=== PATIENT | female | born 1930 | race Caucasian/White ===

== ENCOUNTER 2016-12-11 11:16 | Inpatient (IN) | payer MEDICARE ==
[~2016-12-11] VITALS: Ht 170.2 cm; Wt 65.0 kg
[2016-12-12] MEDS ORDERED: CALC500T35 PO (09:49)
[2016-12-12] MEDS ORDERED: VITA1000 PO (09:49)
[2016-12-12] MEDS ORDERED: GLUC1TAB16 PO (09:49)
[2016-12-12] MEDS ORDERED: HYDR200T3 PO (09:49)
[2016-12-12] MEDS ORDERED: PRIL20TA2 PO (09:49)
[2016-12-12] MEDS ORDERED: ASPI-147 PO (09:49)
[2016-12-12] MEDS ORDERED: COLA100C PO (09:49)
[2016-12-12] MEDS ORDERED: PILO7.5T3 PO (09:49)
[2016-12-12] MEDS ORDERED: WHEA1POW9 PO (09:49)
[2016-12-12] MEDS ORDERED: MULT1TAB PO (09:49)
[2016-12-12] MEDS ORDERED: VITA500S3 SL (09:49)
[2016-12-12] MEDS ORDERED: PILO5TAB3 PO (09:49)
[2016-12-12] MEDS ORDERED: PYRI100T PO (09:49)
[2016-12-12] MEDS ORDERED: CRAN1TAB5 PO (09:49)
[2016-12-12] MEDS ORDERED: MIRA3350 PO (09:49)
[2016-12-12] MEDS ORDERED: ROSU5 PO (09:49)
[2016-12-12] MEDS ORDERED: ACTO150T PO (09:49)
[2016-12-12] MEDS ORDERED: BIOT2500 PO (09:49)
[2016-12-12] MEDS ORDERED: FISH1200 PO (09:49)
[2016-12-12] MEDS ORDERED: VALS320T4 PO (11:25)
[2016-12-16] MEDS ORDERED: NORMOSOL R INJ 1,000 ML IV ONE (12:00)
[2016-12-16] MEDS ORDERED: PROPOFOL 200 MG/20 ML AMP IV ONE (12:00)
[2016-12-16] MEDS ORDERED: ONDANSETRON HCL 4 MG/2 ML VIAL IV PUSH ONE (12:00)
[2016-12-16] MEDS ORDERED: PHENYLEPH/NS 1000 MCG/10 ML SYR IV ONE (12:00)
[2016-12-16] MEDS ORDERED: ePHEDrine/NS 25 MG/5 ML SYR IV ONE (12:00)
[2016-12-16] MEDS ORDERED: LACTATED RINGER'S 1000 ML INJ 1,000 ML IV ONE (12:00)
[2016-12-16] MEDS ORDERED: NEOSTIGMINE 3 MG/3 ML SYR IV ONE (12:00)
[2016-12-16] MEDS ORDERED: POVIDONE IODINE 5% (ANTISEPSIS KIT) 4 APPLICATIONS EACH NARE PRN (14:00)
[2016-12-16] MEDS ORDERED: ceFAZolin 1,000 MG/NS 100 ML IV SCH ×2 (14:00)
[2016-12-16] MEDS ORDERED: SODIUM CHLORID 0.9% 500 ML IV PRN (14:00)
[2016-12-16] MEDS ORDERED: METOPROLOL TARTRATE 25 MG TAB PO PRN (14:00)
[2016-12-16] MEDS ORDERED: INSULIN HUMAN REGULAR 1,000 UNITS/10 ML VIAL SQ PRN (14:00)
[2016-12-16] MEDS ORDERED: CHLORHEXIDINE GLUCONATE 2 % 1 PACK (2 CLOTHS) TOPICAL PRN (14:00)
[2016-12-16] MEDS ORDERED: METRONIDAZOLE 500 MG/100 ML ISONTONIC SOLN IV SCH (14:00)
[2016-12-16] MEDS ORDERED: LACTATED RINGER'S 1000 ML IV PRN (14:00)
[2016-12-16] MEDS ORDERED: ALVIMOPAN 12 MG CAPSULE - On Call PO SCH (14:00)
[2016-12-16] MEDS ORDERED: DEXT 5%-NACL 0.9% 1000 ML INJ 1,000 ML IV SCH (14:00)
--- NOTE | 2016-12-16 14:23 | PD.HP.UP ---
H&P Update Note The Pre-Admit History and Physical Examination regarding the above named patient was reviewed (including, but not limited to, vital signs, heart, lungs, co-morbid conditions), and upon re-examination it is noted that: the patient's condition has not significantly changed since the last examination. Justin Mi MD Dec 16, 2016 14:23
[2016-12-16 14:25] VITALS: BP 162/82; PULSE 95; RESP 16; TEMP 98.5; O2SAT 100
[2016-12-16] MEDS ORDERED: BUPIVACAINE HCL PF 0.5% 30 ML VIAL ONE (14:44)
[2016-12-16] MEDS ORDERED: SUGAMMADEX SODIUM 200 MG/2 ML VIAL IV PUSH ONE ×2 (15:40)
[2016-12-16] MEDS ORDERED: diphenhydrAMINE HCL 50 MG/ML VIAL ONE (15:41)
[2016-12-16] MEDS ORDERED: HYDROmorphone HCL PF 2 MG/ML VIAL ONE (15:41)
[2016-12-16] MEDS ORDERED: DO NOT ADM ANY ANTICOAGULANT DRUGS PRN (18:29)
[2016-12-16] MEDS ORDERED: KETOROLAC TROMETHAMINE 30 MG/ML (IVP) VIAL IVP PRN (18:30)
[2016-12-16] MEDS ORDERED: POTASSIUM CHLOR 40 MEQ PREMIX 100 ML IV PRN (18:30)
[2016-12-16] MEDS ORDERED: MORPHINE SULFATE 30 MG/30 ML PCA IV SCH (18:30)
[2016-12-16] MEDS ORDERED: ENALAPRILAT 2.5 MG/2 ML VIAL IV PRN (18:30)
[2016-12-16] MEDS ORDERED: ENALAPRILAT 1.25 MG/ML VIAL IV PRN (18:30)
[2016-12-16] MEDS ORDERED: POTASSIUM CHLOR 20 MEQ PREMIX 100 ML IV PRN (18:30)
[2016-12-16] MEDS ORDERED: ACETAMINOPHEN/HYDROcodone 325 MG/5 MG TAB PO PRN ×2 (18:30)
[2016-12-16] MEDS ORDERED: ACETAMINOPHEN 325 MG TAB PO PRN (18:30)
[2016-12-16] MEDS ORDERED: NALOXONE HCL 0.4 MG/ML AMP IV PRN ×2 (18:30→19:30)
[2016-12-16] MEDS ORDERED: ONDANSETRON HCL 4 MG/2 ML VIAL IV PRN (18:30)
[2016-12-16] MEDS ORDERED: BENZOCAINE 6 MG/MENTHOL 10 MG LOZENGE BUCCAL PRN (18:30)
[2016-12-16] MEDS ORDERED: SODIUM CHLORIDE 0.9% FLUSH 5 ML FLUSH IVF PRN (18:30)
[2016-12-16] MEDS ORDERED: Post-op Orders (for Pharmacy) MISC XX ONE (18:30)
[2016-12-16] MEDS ORDERED: fentaNYL CITRATE 250 MCG/5 ML AMP ONE (18:34)
[2016-12-16] MEDS ORDERED: HYDROmorphone HCL PCA 6 MG/30 ML IV ONE (19:01)
[2016-12-16] MEDS: D5-NS + KCL 20 MEQ INJ 1,000 ML IV SCH (19:05)
[2016-12-16] MEDS ORDERED: HYDROmorphone HCL PCA 6 MG/30 ML IV SCH (19:30)
[2016-12-16] MEDS ORDERED: *HYDROmorphone PF 1 MG VIAL PERIprocedural Use ONLY ONE (19:50)
[2016-12-16 20:39] VITALS: BP 150/65; PULSE 90; RESP 14; O2SAT 100
[2016-12-16 21:00] VITALS: PULSE 85
[2016-12-16] MEDS: SODIUM CHLORIDE 0.9% FLUSH 5 ML FLUSH IVF SCH (21:00)
[2016-12-16 22:00] VITALS: BP 136/72; PULSE 93; PULSE 94; RESP 14; O2SAT 100
[2016-12-16] MEDS ORDERED: PCA - TOTAL MG MORPHINE DELIVERED PER SHIFT SCH (22:00)
[2016-12-16] MEDS: METOCLOPRAMIDE HCL 10 MG/2 ML VIAL IVS SCH (22:10)
[2016-12-16] MEDS: diphenhydrAMINE HCL 50 MG/ML VIAL IV PRN (22:11)
[2016-12-16 23:00] VITALS: BP 101/60; PULSE 87; PULSE 88; RESP 14; TEMP 98.2; O2SAT 100
[2016-12-17] VITALS (10 sets, daily range): BP systolic 101–156; BP diastolic 54–77; PULSE 84–113; RESP 17–22; TEMP 95.4–100; O2SAT 95–100
[2016-12-17] MEDS: metroNIDAZOLE 500 MG INJ 100 ML IV SCH ×3 (01:03→13:55)
[2016-12-17] MEDS: D5-NS + KCL 20 MEQ INJ 1,000 ML IV SCH ×4 (02:27→21:54)
[2016-12-17] MEDS: diphenhydrAMINE HCL 50 MG/ML VIAL IV PRN ×2 (04:42→13:55)
[2016-12-17] MEDS: PCA - TOTAL MG DILAUDID DELIVERED PER SHIFT SCH ×3 (06:00→21:50)
[2016-12-17 06:45] LABS: AUTOMATED NEUTROPHIL # 6.3 TH/MM3 (1.8-7.7); BASOPHIL % 0.2 % (0.0-2.0); EOSINOPHIL % 0.2 % (0.0-4.0); HEMATOCRIT 33.7 % (35.0-46.0); HEMO FLAGS DIFF FINAL; LYMPH % 9.3 % (9.0-44.0); LYMPHOCYTE # 0.7 TH/MM3 (1.0-4.8); MEAN CELL VOLUME 89.3 FL (80.0-100.0); MEAN CORPUSCULAR HEMOGLOBIN 30.2 PG (27.0-34.0); MEAN CORPUSCULAR HGB CONC 33.8 % (32.0-36.0); MONO % 7.1 % (0.0-8.0); NEUT % 83.2 % (16.0-70.0); PLATELET COUNT 259 TH/MM3 (150-450); RED BLOOD COUNT 3.77 MIL/MM3 (4.00-5.30); RED CELL DISTRIBUTION WIDTH 14.9 % (11.6-17.2); WHITE BLOOD COUNT 7.6 TH/MM3 (4.0-11.0)
[2016-12-17 07:02] LABS: BICARBONATE 22.8 MEQ/L (21.0-32.0); POTASSIUM 4.4 MEQ/L (3.5-5.1)
[2016-12-17] MEDS: PANTOPRAZOLE SODIUM 40 MG VIAL IVP SCH (09:00)
[2016-12-17] MEDS ORDERED: NON-FORMULARY DRUG (Valsartan-Hydrochlorothiazide 1 TAB) PO SCH (09:00)
[2016-12-17] MEDS: SODIUM CHLORIDE 0.9% FLUSH 5 ML FLUSH IVF SCH ×2 (09:00→21:00)
[2016-12-17] MEDS: METOCLOPRAMIDE HCL 10 MG/2 ML VIAL IVS SCH ×2 (09:24→21:48)
[2016-12-17] MEDS: PANTOPRAZOLE SOD 40 MG DELAYED RELEASE TAB PO SCH (09:25)
[2016-12-17] MEDS: HYDROCHLOROTHIAZIDE 12.5 MG CAP PO SCH (09:26)
[2016-12-17] MEDS: ALVIMOPAN 12 MG CAPSULE - Post-op dosing PO SCH ×2 (09:26→21:48)
[2016-12-17] MEDS: VALSARTAN 160 MG TAB PO SCH (09:26)
--- NOTE | 2016-12-17 18:51 | HHI.PR ---
Subjective Remarks C/R Surg POD # 1 afebrile, VSS UO [place] PO Objective - Vital Signs Date Time Temp Pulse Resp B/P Pulse Ox O2 Delivery O2 Flow Rate FiO2 12/17/16 16:00 97.3 95 17 107/62 12/17/16 10:38 95 12/17/16 08:06 21 12/17/16 04:01 Nasal Cannula 2.00 Result Diagram: 12/17/16 0612 12/17/16 0612 Objective Remarks PE alert Abd - soft, wound dry, min tympany A/P Assessment and Plan Imp: stable post-op OOB decr IVF start PO Justin Mi MD Dec 17, 2016 18:51
[2016-12-17] MEDS ORDERED: ALVIMOPAN 12 MG CAPSULE PO SCH (21:00)
[2016-12-18] VITALS: BP 128/59; PULSE 109; RESP 22; TEMP 100.1; O2SAT 95
[2016-12-18 04:00] VITALS: BP 133/61; PULSE 106; RESP 20; TEMP 99.1; O2SAT 95
[2016-12-18 04:52] LABS: AUTOMATED NEUTROPHIL # 5.3 TH/MM3 (1.8-7.7); BASOPHIL % 0.3 % (0.0-2.0); EOSINOPHIL # 0.6 TH/MM3 (0-0.4); EOSINOPHIL % 6.7 % (0.0-4.0); HEMATOCRIT 29.4 % (35.0-46.0); HEMO FLAGS DIFF FINAL; LYMPH % 20.8 % (9.0-44.0); LYMPHOCYTE # 1.8 TH/MM3 (1.0-4.8); MEAN CELL VOLUME 89.3 FL (80.0-100.0); MEAN CORPUSCULAR HEMOGLOBIN 31.1 PG (27.0-34.0); MEAN CORPUSCULAR HGB CONC 34.8 % (32.0-36.0); MONO % 9.1 % (0.0-8.0); NEUT % 63.1 % (16.0-70.0); PLATELET COUNT 246 TH/MM3 (150-450); RED BLOOD COUNT 3.29 MIL/MM3 (4.00-5.30); RED CELL DISTRIBUTION WIDTH 14.9 % (11.6-17.2); WHITE BLOOD COUNT 8.5 TH/MM3 (4.0-11.0)
[2016-12-18 05:16] LABS: BICARBONATE 24.1 MEQ/L (21.0-32.0); POTASSIUM 4.2 MEQ/L (3.5-5.1)
[2016-12-18] MEDS: PCA - TOTAL MG DILAUDID DELIVERED PER SHIFT SCH ×2 (06:00→14:00)
--- NOTE | 2016-12-18 06:38 | MP ---
cc: IZABELA JACOBS M.D. DATE OF SURGERY 12/16/2016 PREOPERATIVE DIAGNOSIS Recurrent full-thickness rectal prolapse. PROCEDURE Exploratory laparotomy with lysis of adhesions and rectopexy. POSTOPERATIVE DIAGNOSIS Recurrent full-thickness rectal prolapse. SURGEON Dr. Jacobs PROCEDURE The patient was placed in the supine position. After adequate general anesthesia, her abdomen was prepped with Betadine solution and draped in the usual sterile fashion. Initially, the abdomen was opened through the previous midline incision. After getting through the subcutaneous tissue, there appeared to be mesh along the midline at a previous hernia repair. The mesh was incised entering the peritoneum and opening the abdomen under direct vision. There were some adhesions to the parietal peritoneum and these were taken down with electrocautery. Exploration revealed a very redundant colon with a very mobile cecum and transverse colon. The rectosigmoid had been previously resected and there appeared to be a very deep cul-de-sac with thickening and some edema of the rectum consistent with a rectal prolapse. The small bowel was run from the ligament of Treitz down to the ileocecal valve and felt to be pretty unremarkable. The uterus and ovaries appeared to be surgically absent. First, the sigmoid colon was mobilized medially by dividing along the left white line of Toldt. The left ureter was identified and carefully preserved. The right retroperitoneal space was then opened and the bowel dissected off the presacral fascia mobilizing the bowel down toward the pelvic floor. After complete mobilization, there appeared to be enough mobilization to proceed with a rectopexy. Horizontal Prolene stitches were then placed on both sides of the rectum into the mesentery securing them firmly into the presacral fascia on both sides. After both sutures were placed in each side, they were tied sequentially firming up the rectopexy. Additionally, several sutures were placed in the cul-de-sac, trying to reinforce the rectopexy repair. After completion, the lumen size of the rectum appeared to be more than adequate. There appeared to be good fixation of the rectum to the presacral fascia. Hemostasis was achieved at all sites. The midline incision was then closed anatomically reapproximating the midline fascia and the mesh with a running #1 PDS suture. The subcutaneous tissues irrigated copiously and the skin closed with a running subcuticular Vicryl suture and a few skin janki for hemostasis. The wound area washed with normal saline and dried, sterile dressing of Telfa and gauze applied. The patient tolerated the procedure quite well and was brought to recovery room in stable condition. Sponge and needle counts were correct at the end of the procedure. MD MARIKA Hauser/ABENA /11:40 PM /6:28 AM
[2016-12-18 08:00] VITALS: BP 146/72; PULSE 109; RESP 18; TEMP 100.2; O2SAT 95
[2016-12-18] MEDS: PANTOPRAZOLE SOD 40 MG DELAYED RELEASE TAB PO SCH (08:28)
[2016-12-18] MEDS: VALSARTAN 160 MG TAB PO SCH (08:28)
[2016-12-18] MEDS: METOCLOPRAMIDE HCL 10 MG/2 ML VIAL IVS SCH (08:29)
[2016-12-18] MEDS: HYDROCHLOROTHIAZIDE 12.5 MG CAP PO SCH (08:29)
[2016-12-18] MEDS: PANTOPRAZOLE SODIUM 40 MG VIAL IVP SCH (08:29)
[2016-12-18] MEDS: ALVIMOPAN 12 MG CAPSULE - Post-op dosing PO SCH ×2 (08:29→20:11)
[2016-12-18] MEDS: SODIUM CHLORIDE 0.9% FLUSH 5 ML FLUSH IVF SCH ×2 (08:30→20:11)
[2016-12-18] MEDS: D5-NS + KCL 20 MEQ INJ 1,000 ML IV SCH (08:30)
[2016-12-18 12:00] VITALS: BP 172/87; PULSE 104; RESP 18; TEMP 99.3; O2SAT 96
[2016-12-18 16:00] VITALS: BP 146/69; PULSE 105; RESP 18; TEMP 99.9; O2SAT 97
--- NOTE | 2016-12-18 18:43 | HHI.PR ---
Subjective Remarks C/R Surg POD # 2 afebrile, VSS UO [place] PO +flatus Objective - Vital Signs Date Time Temp Pulse Resp B/P Pulse Ox O2 Delivery O2 Flow Rate FiO2 12/18/16 16:00 99.9 105 18 146/69 97 12/17/16 08:06 21 12/17/16 04:01 Nasal Cannula 2.00 Result Diagram: 12/18/1641912/18/16419 Objective Remarks PE alert Abd - soft, wound dry, min tympany A/P Assessment and Plan Imp: OOB decr IVF start PO, adv dc plans Justin Mi MD Dec 18, 2016 18:43
[2016-12-18] MEDS ORDERED: METOCLOPRAMIDE HCL 10 MG/2 ML VIAL IVS PRN (18:45)
[2016-12-18 20:00] VITALS: BP 177/79; PULSE 105; RESP 18; TEMP 98.6; O2SAT 94
[2016-12-19] VITALS: BP 141/64; PULSE 102; RESP 18; TEMP 97.4; O2SAT 95
--- NOTE | 2016-12-19 07:49 | HHI.FF ---
Face to Face Verification Diagnosis: (1) Rectal prolapse Physical Therapy Order: Evaluate and Treat, Improve ambulation, Strength and gait training Home Health Nursing Order: Medical education Signs/symptoms of disease process Wound care and dressing changes I have seen patient Marilee Gibson on 12/19/16. My clinical findings support the need for the requested home health care services because: Ltd mobility - disease progression Deconditioned w/ increased weakness Limited ability to care for self High risk of falls I certify that my clinical findings support that this patient is homebound because: Post-op weakness Impaired cognitive ability/safety Unsteady gait/balance Justin Mi MD Dec 19, 2016 07:48
[2016-12-19 08:00] VITALS: BP 159/85; PULSE 95; RESP 18; TEMP 99; O2SAT 96
[2016-12-19] MEDS: VALSARTAN 160 MG TAB PO SCH (08:48)
[2016-12-19] MEDS: PANTOPRAZOLE SODIUM 40 MG VIAL IVP SCH (08:49)
[2016-12-19] MEDS: ALVIMOPAN 12 MG CAPSULE - Post-op dosing PO SCH (08:49)
[2016-12-19] MEDS: HYDROCHLOROTHIAZIDE 12.5 MG CAP PO SCH (08:49)
[2016-12-19] MEDS: PANTOPRAZOLE SOD 40 MG DELAYED RELEASE TAB PO SCH (08:49)
[2016-12-19] MEDS: SODIUM CHLORIDE 0.9% FLUSH 5 ML FLUSH IVF SCH (08:50)
[2016-12-19] MEDS: D5-NS + KCL 20 MEQ INJ 1,000 ML IV SCH (11:52)
[2016-12-19 12:00] VITALS: BP 128/64; PULSE 92; RESP 18; TEMP 99.1; O2SAT 97
--- NOTE | 2016-12-19 14:37 | HHI.PR ---
Subjective Remarks C/R Surg POD # 3 afebrile, VSS UO [place] PO +flatus/BM Objective - Vital Signs Date Time Temp Pulse Resp B/P Pulse Ox O2 Delivery O2 Flow Rate FiO2 12/19/16 12:00 99.1 92 18 128/64 97 12/17/16 08:06 21 12/17/16 04:01 Nasal Cannula 2.00 Result Diagram: 12/18/1641912/18/16419 Objective Remarks PE alert Abd - soft, wound dry, min tympany, wound opened lower pole - serous fluid A/P Assessment and Plan Imp: OOB decr IVF start PO, adv dc plans - local care to wound, RTO 1 week Justin Mi MD Dec 19, 2016 14:37
== END 2016-12-19 16:20 | disposition home or self-care (01) | DRG 331 ==
LOC: HSDI 12-16 13:18 → HCIS 12-16 20:30 → N07B 12-17 10:19
PROVIDERS: ADMIT Colon & Rectal Surgery; ATTEND Colon & Rectal Surgery
PROC: 0DNW0ZZ Release Peritoneum, Open Approach (ICD-10-PCS; principal; 2016-12-17)
PROC: 0DQP0ZZ Repair Rectum, Open Approach (ICD-10-PCS; 2016-12-17)
DX: K62.3 Rectal prolapse (principal); K66.0 Peritoneal adhesions (postprocedural) (postinfection)
CPT/HCPCS: 76937; 80048; 85025; 86850; 86900; 86901; 94150; J0690; J1170; J1200; J1885; J2370; J2405; J2710; J2765; J3010; J3480; J7120

== ENCOUNTER → 2016-12-12 | Outpatient (CLI) | payer MEDICARE ==
[~2016-12-12] MED LIST: ACTO150T PO; ACTO35TA PO; ASPI-147 PO; ASPI81TA82 PO; AVASINJ INJ; BIOT2500 PO; CALC500T35 PO; CALC600T34 PO; COLA100C PO; CRAN1TAB5 PO; DOCU1CAP39 PO; ESTR42.5V PV; FIBECHW2 PO; FISH1000 PO; FISH1200 PO; FOLI400T30 PO; GLUC1TAB16 PO; GLUCTAB47 PO; HYDR200T3 PO; HYDR200T42 PO; LORA10TA PO; LOTE20TA PO; MELO15TA2 PO; MIRA3350 PO; MULT1TAB PO; OMPR20CCR PO; PILO5TAB PO; PILO5TAB3 PO; PILO7.5T3 PO; PRIL20TA2 PO; PYRI100T PO; ROSU5 PO; TAB-TAB PO; VALS320T4 PO; VITA1000 PO; VITA10002 PO; VITA400C28 PO; VITA400C70 PO; VITA500S3 SL; WHEA1POW9 PO
--- NOTE | 2016-12-12 09:15 | RADRPT ---
EXAM DATE/TIME: 12/12/2016 09:02 [facility] COMPARISON: No previous studies available for comparison. INDICATIONS : Evaluate for pneumonia, pneumothorax or communicable disease. Pre op for rectal prolapse. MEDICAL HISTORY : Cardiovascular disease. SURGICAL HISTORY : None. ENCOUNTER: Initial ACUITY: 1 day PAIN SCORE: 0/10 LOCATION: Bilateral chest FINDINGS: Lungs are hyperexpanded with mild interstitial prominence. Mild scarring in the left lung base. No si gnificant focal pleural-parenchymal opacities. Cardiomediastinal contours are within normal limits. L eft axillary surgical clips. Anterior fusion hardware in the lower cervical spine. Osseous structures are grossly intact. CONCLUSION: 1. Changes suggestive of obstructive pulmonary disease. 2. Otherwise, no acute cardiopulmonary disease. Felipe Kirk MD on December 12, 2016 at 9:11 Board Certified Radiologist. This report was verified electronically.
[2016-12-12 09:20] LABS: BLOOD, URINE NEG (NEG); GLUCOSE,URINE NEG (NEG); KETONE, URINE NEG (NEG); NITRITE,URINE NEG (NEG); URINE COLOR LIGHT-YELLOW (YELLW/STRAW)
[2016-12-12 09:25] LABS: COMMENT (UR) CULT NOT INDICATED; CULTURE IF INDICATED CULT NOT INDICATED
[2016-12-12 09:32] LABS: AUTOMATED NEUTROPHIL # 3.9 TH/MM3 (1.8-7.7); BASOPHIL # 0.1 TH/MM3 (0-0.2); BASOPHIL % 0.7 % (0.0-2.0); EOSINOPHIL # 0.4 TH/MM3 (0-0.4); EOSINOPHIL % 5.3 % (0.0-4.0); HEMATOCRIT 35.3 % (35.0-46.0); HEMO FLAGS DIFF FINAL; LYMPH % 31.6 % (9.0-44.0); LYMPHOCYTE # 2.3 TH/MM3 (1.0-4.8); MEAN CELL VOLUME 91.5 FL (80.0-100.0); MEAN CORPUSCULAR HEMOGLOBIN 29.9 PG (27.0-34.0); MEAN CORPUSCULAR HGB CONC 32.6 % (32.0-36.0); MONO % 10.3 % (0.0-8.0); NEUT % 52.1 % (16.0-70.0); PLATELET COUNT 263 TH/MM3 (150-450); RED BLOOD COUNT 3.85 MIL/MM3 (4.00-5.30); RED CELL DISTRIBUTION WIDTH 14.9 % (11.6-17.2); WHITE BLOOD COUNT 7.4 TH/MM3 (4.0-11.0)
[2016-12-12 09:41] LABS: APTT (PATIENT) 26.7 SEC (24.3-30.1); PROTHROMBIN TIME - PATIENT 10.7 SEC (9.8-11.6)
[2016-12-12 10:09] LABS: ANION GAP 7 MEQ/L (5-15); AST (GOT) 23 U/L (15-37); BICARBONATE 26.7 MEQ/L (21.0-32.0); BLOOD UREA NITROGEN 19 MG/DL (7-18); CHLORIDE 101 MEQ/L (98-107); GLOMERULAR FILTRATION RATE 82 ML/MIN (>89); GLUCOSE,FASTING 87 MG/DL (74-99); POTASSIUM 4.1 MEQ/L (3.5-5.1); SODIUM (NA) 135 MEQ/L (136-145)
[2016-12-12 10:15] LABS: ALKALINE PHOSPHATASE 113 U/L (45-117); ALT (GPT) 21 U/L (10-53); TOTAL BILIRUBIN ADULT 0.5 MG/DL (0.2-1.0)
--- NOTE | 2016-12-12 12:39 | EKG ---
Date Performed: 12/12/2016 Time Performed: 08:30:11 PTAGE: 86 years EKG: Sinus rhythm WITH FREQUENT VENTRICULAR PREMATURE COMPLEXES POSSIBLE LEFT ATRIAL ENLARGEMENT MARKED LEFT AXIS ROBBIE ATION MINIMAL ST DEPRESSION ABNORMAL ECG PREVIOUS TRACING : 07/19/2013 13.44 DOCTOR: Colin Haro Interpretating Date/Time 12/12/2016 12:37:15
== END ==
LOC: CPRE 07:58
PROVIDERS: ATTEND Colon & Rectal Surgery
DX: Z01.812 Encounter for preprocedural laboratory examination (principal); Z01.810 Encounter for preprocedural cardiovascular examination; Z01.811 Encounter for preprocedural respiratory examination; K62.3 Rectal prolapse; R94.31 Abnormal electrocardiogram [ECG] [EKG]; Z79.01 Long term (current) use of anticoagulants
CPT/HCPCS: 36415; 71020; 80053; 81001; 85025; 85610; 85730; 93005

== ENCOUNTER 2016-12-30 20:06 | Inpatient (IN) | payer MEDICARE ==
[~2016-12-30] VITALS: Ht 170.2 cm; Wt 68.6 kg
[~2016-12-30 20:06] MED LIST changes: -ACTO35TA PO; -ASPI81TA82 PO; -AVASINJ INJ; -CALC600T34 PO; -DOCU1CAP39 PO; -ESTR42.5V PV; -FIBECHW2 PO; -FISH1000 PO; -FISH1200 PO; -FOLI400T30 PO; -GLUCTAB47 PO; -HYDR200T42 PO; -LORA10TA PO; -LOTE20TA PO; -MELO15TA2 PO; -OMPR20CCR PO; -PILO5TAB PO; -PILO7.5T3 PO; -TAB-TAB PO; -VITA10002 PO; -VITA400C28 PO; -VITA400C70 PO
[2016-12-30 20:18] VITALS: BP 109/68; PULSE 101; RESP 18; TEMP 101.6; O2SAT 96
[2016-12-30 20:27] VITALS: RESP 18; O2SAT 95
--- NOTE | 2016-12-30 20:27 | PD ---
HPI Chief Complaint: Fever Time Seen by Provider: 20:22 Travel History International Travel<30 days: No Contact w/Intl Traveler<30days: No Traveled to known affect area: No History of Present Illness HPI The patient is an 86 year old female who presents to the [facility] emergency department with a history of reportedly being 2 weeks postop from a rectal prolapse repair done by Dr. Mi. The patient reports that she was admitted to the hospital for 4 days. She reports that on the third day of hospitalization the lower aspect of the wound appeared to not be healing well. A few janki were removed and the wound dehisced and was packed. She denies being started on any antibiotic. She reports that she's had the dressing changed and wound repacked twice a day. She has home health that comes out to do this once a day and her helps to do it the second time H day. She reports that today she began to experience increased fatigue and noted that she had a fever with a MAXIMUM TEMPERATURE at home of 103. She denies having any nausea or vomiting. She denies having any diarrhea except for one episode of loose stools earlier today after taking milk of magnesia. She reports that she does have a history of chronic constipation which is why she took the milk of magnesia earlier today. She reports having urinary frequency since the surgery. She does report that she had a catheter in place further surgery. The patient reports having a history of urge incontinence that has been ongoing for the last several months. She denies having any dysuria. The patient denies having any cough, head congestion or chest congestion. She denies having any chest pain, chest pressure, or shortness of breath. She denies having any abdominal pain. She reports that she last saw Dr. Mi for a follow-up appointment last week. She reports that she has [address] and has an appointment scheduled to remove these for tomorrow. Otherwise on review of systems, the patient denies any neck pain, or other neurologic symptoms. The patient's arrives at the patient's bedside and reports that the abdominal wound is basically unchanged recently. He denies any purulent drainage with dressing changes. He denies noticing any increased redness at the wound site. [facility] Past Medical History Narrative Medical The patient's past medical history is significant for Sjogren's, hypertension, history of left breast cancer status post mastectomy and left breast reconstruction, history of coronary artery disease and prior myocardial infarction, history of lupus, neck and back arthritis Cancer: Yes (MASECTOMY AND LEFT BREAST RECONSTRUCTION) Cardiovascular Problems: Yes (NH 1996) Diabetes: No Endocrine: No Glaucoma: No Genitourinary: No Hepatitis: No Hiatal Hernia: No Hypertension: Yes Immune Disorder: Yes (SOJOURN SYNDROME, LUPUS) Musculoskeletal: Yes (BACK AND NECK, ARTHRITIS) Neurologic: Yes (NEUROPATHY FEET, REYNAUDS) Psychiatric: No Reproductive: Yes (VAG. PROLAPSE) Respiratory: No Thyroid Disease: No Past Surgical History Narrative Surgical The patient's past surgical history is significant for cervical spine surgery, hysterectomy, left mastectomy with reconstruction, bilateral cataract surgery, prolapsed rectum repair in 2000 and most recently 2 weeks ago Abdominal Surgery: Yes (ABDOMINAL HERNIA REP.) AICD: No Body Medical Devices: CERVICAL HARDWARE Cardiac Surgery: No Ear Surgery: No Endocrine Surgery: No Eye Surgery: Yes (JOHN. CATARACT EXTRACT) Genitourinary Surgery: Yes (AP REPAIR WITH PROLAPSED RECTUM REPAIR 2000) Gynecologic Surgery: Yes (HYSTERECTOMY, LEFT MASTECTECTOMY) Joint Replacement: Yes (BILAT KNEES, RIGHT HIP) Oral Surgery: No Pacemaker: No Thoracic Surgery: No Social History Alcohol Use: Yes (OCC SCOTCH) Tobacco Use: No Substance Use: No Allergies-Medications (Allergen,Severity, Reaction): Coded Allergies: Cipro (Verified Allergy, Severe, BP DROPPED AND PASSED OUT , 12/30/16) Codeine (Verified Allergy, Severe, itch, 12/30/16) Morphine (Verified Allergy, Severe, ITCH, 12/30/16) Quinolones (Verified Allergy, Severe, b/p dropped and pt passed out, ) Penicillin (Verified Allergy, Intermediate, MOUTH BREAKS OUT, 12/30/16) Sulfa (Verified Allergy, Intermediate, MOUTH BREAKS OUT, 12/30/16) Uncoded Allergies: CAT GUT SUTURE (Allergy, Severe, NON-HEALING WOUND, 11/16/13) Reported Meds & Prescriptions Reported Meds & Active Scripts Active Reported Valsartan-Hydrochlorothiazide 320-12.5 Mg Tab 1 Tab PO DAILY Cranberry Tablet (Cranberry Conc/C/Bacill Coag) 1 Each Tablet 1 Tab PO DAILY Colace (Docusate Sodium) 100 Mg Capsule 100 Mg PO DAILY Miralax Powder (Polyethylene Glycol 3350 Powder) 17 Gm Powd 17 Gm PO DAILY Mix and dissolve one measuring cap-ful (17 grams) in water or juice. Benefiber (Wheat Dextrin) 144 Gm Powder 144 Gm PO DAILY Glucosamine Sulfate 1,000 Mg Tab 2,000 Mg PO DAILY Biotin 2,500 Mcg Cap 2,500 Mcg PO DAILY Vitamin D-1000 (Cholecalciferol) 1,000 Unit Tab 1,000 Units PO DAILY Vitamin B-12 (Cyanocobalamin) 500 Mcg Subl 500 Mcg SL DAILY Vitamin B-6 (Pyridoxine HCl) 100 Mg Tab 100 Mg PO DAILY Centrum Silver Adult 50+ (Multiple Vitamins W/ Minerals) 1 Tab Tab 1 Tab PO DAILY Calcium (Oyster Shell) 500 Mg Tab 500 Mg PO DAILY Hydroxychloroquine (Hydroxychloroquine Sulfate) 200 Mg Tab 200 Mg PO DAILY Takw with food Prilosec (Omeprazole Magnesium) 20 Mg Tab 20 Mg PO DAILY Pilocarpine 5 Mg Tab 5 Mg PO Q8HR Ecotrin Low Strength (Aspirin) 81 Mg Tabdr 81 Mg PO DAILY Crestor (Rosuvastatin Calcium) 5 Mg Tab 5 Mg PO DAILY Actonel (Risedronate) 150 Mg Tab 150 Mg PO Q30D Review of Systems Except as stated in HPI: all other systems reviewed are Neg General / Constitutional: Positive: Fever Eyes: No: Visual changes HENT: No: Headaches, Rhinorrhea, Congestion Cardiovascular: No: Chest Pain or Discomfort, Dyspnea on exertion Respiratory: No: Cough, Shortness of Breath Gastrointestinal: Positive: Constipation (chronic), No: Nausea, Vomiting, Diarrhea, Abdominal Pain, Hematemesis, Hematochezia, Changes in Bowel Habits, Indigestion, Loss of Appetite Genitourinary: No: Dysuria Musculoskeletal: No: Pain Skin: No Rash Neurologic: No: Weakness Psychiatric: No: Depression Endocrine: No: Polydipsia Hematologic/Lymphatic: No: Easy Bruising Physical Exam Narrative General: The patient is a well-developed well-nourished female in no acute distress. Head and Neck exam: Head is normocephalic atraumatic. Eyes: EOMI, pupils are equal round and reactive to light. Nose: Midline septum with pink mucous membranes Mouth: Dentition unremarkable. Moist mucus membranes. Posterior oropharynx is not erythematous. No tonsillar hypertrophy. Uvula midline. Airway patent. Neck: No palpable lymphadenopathy. No nuchal rigidity. No thyromegaly. Cardiovascular: Sinus tachycardia in the low 100 without murmurs, gallops, or rubs. No pulse deficit to the extremities and simultaneous auscultation and palpation of her radial artery. Lungs: Clear to auscultation bilaterally. No wheezes, rhonchi, or rales. Abdomen: Soft, without tenderness to palpation in all 4 quadrants of the abdomen. No guarding, rebound, or rigidity. Normal bowel sounds are audible. No tenderness on palpation of McBurney's point. Negative Sigala's sign. The patient has a central abdominal postoperative wound noted. The patient has [address] The patient has a rim of rear small surrounding rim of erythema, however she reports that this is unchanged. The lower aspect of the wound has dehisced and has packing in place that has a serosanguineous drainage noted. Extremities: No clubbing, cyanosis, or edema. 2+ pulses in all 4 extremities. No calf tenderness on palpation. Back: No costovertebral angle tenderness to palpation. Neurologic Exam: Grossly nonfocal. Skin Exam: No rash noted. Data Data Last Documented VS Vital Signs Date Time Temp Pulse Resp B/P Pulse Ox O2 Delivery O2 Flow Rate FiO2 12/30/16 22:00 93 18 118/58 12/30/16 21:00 96 12/30/16 20:27 Room Air 12/30/16 20:18 101.6 Orders Complete Blood Count With Diff (12/30/16 20:22) Comprehensive Metabolic Panel (12/30/16 20:22) Prothrombin Time / Inr (Pt) (12/30/16 20:22) Act Partial Throm Time (Ptt) (12/30/16 20:22) Blood Culture (12/30/16 20:22) C-Reactive Protein (Crp) (12/30/16 20:22) Urinalysis - C+S If Indicated (12/30/16 20:22) Cath For Specimen (12/30/16 20:22) Magnesium (Mg) (12/30/16 20:22) Chest, Single Ap (12/30/16 20:22) Iv Access Insert/Monitor (12/30/16 20:22) Ecg Monitoring (12/30/16 20:22) Oximetry (12/30/16 20:22) Lactic Acid Sepsis Protocol (12/30/16 20:22) Ct Abd/Pel W Iv Contrast(Rout) (12/30/16 21:25) Ceftriaxone Inj (Rocephin Inj) (12/30/16 21:30) Sodium Chlor 0.9% 1000 Ml Inj (Ns 1000 M (12/30/16 21:30) Acetaminophen (Tylenol) (12/30/16 21:30) Iohexol 350 Inj (Omnipaque 350 Inj) (12/30/16 22:01) Vancomycin Inj (Vancomycin Inj) (12/30/16 22:13) Admit Order (Ed Use Only) (12/30/16 22:41) Labs Laboratory Tests Test 12/30/16 12/30/16 12/30/16 20:25 20:30 21:30 White Blood Count 17.0 TH/MM3 Red Blood Count 3.89 MIL/MM3 Hemoglobin 11.5 GM/DL Hematocrit 34.6 % Mean Corpuscular Volume 88.9 FL Mean Corpuscular Hemoglobin 29.7 PG Mean Corpuscular Hemoglobin 33.4 % Concent Red Cell Distribution Width 14.5 % Platelet Count 459 TH/MM3 Mean Platelet Volume 9.9 FL Neutrophils (%) (Auto) 89.6 % Lymphocytes (%) (Auto) 6.1 % Monocytes (%) (Auto) 3.9 % Eosinophils (%) (Auto) 0.1 % Basophils (%) (Auto) 0.3 % Neutrophils # (Auto) 15.2 TH/MM3 Lymphocytes # (Auto) 1.0 TH/MM3 Monocytes # (Auto) 0.7 TH/MM3 Eosinophils # (Auto) 0.0 TH/MM3 Basophils # (Auto) 0.1 TH/MM3 CBC Comment DIFF FINAL Differential Comment Prothrombin Time 12.3 SEC Prothromb Time International 1.1 RATIO Ratio Activated Partial 28.9 SEC Thromboplast Time Sodium Level 130 MEQ/L Potassium Level 3.9 MEQ/L Chloride Level 96 MEQ/L Carbon Dioxide Level 25.1 MEQ/L Anion Gap 9 MEQ/L Blood Urea Nitrogen 21 MG/DL Creatinine 0.83 MG/DL Estimat Glomerular Filtration 65 ML/MIN Rate Random Glucose 149 MG/DL Calcium Level 8.4 MG/DL Magnesium Level 2.1 MG/DL Total Bilirubin 0.4 MG/DL Aspartate Amino Transf 23 U/L (AST/SGOT) Alanine Aminotransferase 20 U/L (ALT/SGPT) Alkaline Phosphatase 166 U/L C-Reactive Protein 9.80 MG/DL Total Protein 7.2 GM/DL Albumin 3.1 GM/DL Lactic Acid Level 2.0 mmol/L Urine Color YELLOW Urine Turbidity CLEAR Urine pH 6.0 Urine Specific [place] 1.022 Urine Protein 30 mg/dL Urine Glucose (UA) NEG mg/dL Urine Ketones NEG mg/dL Urine Occult Blood NEG Urine Nitrite NEG Urine Bilirubin NEG Urine Urobilinogen LESS THAN 2.0 MG/DL Urine Leukocyte Esterase NEG Urine RBC LESS THAN 1 /hpf Urine WBC 1 /hpf Urine Squamous Epithelial <1 /hpf Cells Urine Mucus FEW /lpf Microscopic Urinalysis Comment CULT NOT INDICATED MDM Medical Decision Making Medical Screen Exam Complete: Yes Emergency Medical Condition: Yes Medical Record Reviewed: Yes Interpretation(s) Last Impressions Abdomen/Pelvis CT 12/30/162124 Signed Impressions: Service Date/Time: Friday, December 30, 2016 21:58 - CONCLUSION: Recent midline laparotomy. Elongated debris collection within the anterior abdominal wall and potentially a developing fistula track within the anterior aspect of the underlying peritoneal space. I don't see a drainable abscess. No bowel obstruction. Marcus Montano MD ADDENDUM: Per the colorectal surgeon, the anterior abdominal wound has been recently open and packed, would explain the elongated debris/air collection within the anterior bowel wall. Marcus Montano MD Chest X-Ray 12/30/162021 Signed Impressions: Service Date/Time: Friday, December 30, 2016 20:22 - CONCLUSION: Trace consolidation and tiny pleural effusion at the left base. Marcus Montano MD Differential Diagnosis Pyelonephritis, versus postoperative pneumonia, versus postoperative wound infection, versus intra-abdominal abscess Narrative Course During the course of the patients emergency department visit, the patients history, examination, and differential diagnosis were reviewed with the patient. The patient had IV access obtained and blood work sent for analysis. The patient was placed on a playground monitor with oximetry and blood pressure monitoring. Dr. Mi called regarding his patient and agreed with the plan of care and initial workup. The patient was initially provided Tylenol 650 mg by mouth 1 for fever, normal saline 1 L IV fluid bolus, Rocephin 1 g IV for suspected urinary tract infection as a source of the patient's postop fever given the patient's urinary symptoms. The patients laboratory studies were reviewed and remarkable for a white count of 17, hemoglobin 11.5, platelets 459, neutrophils 89.6, lymphocytes 6.1, CMP is remarkable for sodium 1:30, chloride 96, BUN 21, glucose 149, calcium 8.4, alkaline phosphatase 166, C-reactive protein 9.8, lactic acid 2, PT 12.3, PTT 28.9, urinalysis shows 30 protein otherwise unremarkable. Radiology studies were reviewed and remarkable for a chest x-ray that shows trace consolidation and tiny pleural effusion at the left base, CT scan of the abdomen and pelvis shows a recent midline laparotomy, along gait and debris collection within the anterior abdominal wall and potentially a developing fistula track within the anterior aspect of the underlying peritoneal's. No drainable abscess is noted. The patient's case was again discussed with Dr. Mi. He did agree to admit the patient for continued evaluation and treatment. Blood cultures 2 are pending. The patients results were discussed with the patient, including the plan of care. I explained that further testing and/ or monitoring is indicated based on the patients history, examination, and/ or laboratory findings. Therefore, I recommended admission for additional evaluation. The patient expressed understanding and was agreeable with this plan. The patient was admitted to the hospital in stable condition and sent to a bed under the care of the colorectal surgeon. Sepsis Criteria SIRS Criteria (2 or more): Temp > 100.9 or < 96.8, Heart rate over 90, WBC > 26274, < 4000 or > 10% bands Sepsis Criteria (SIRS+source): Infect source susp/known Physician Communication Physician Communication I spoke to Dr. Mi at approximately 8:28 PM regarding this patient's case. We did discuss the fact that a workup was process. I will give him a call back on to have more information. Admitting Information Admitting Physician Requests: Admit Olivia Dye MD Dec 30, 2016 20:27
--- NOTE | 2016-12-30 20:56 | RADRPT ---
EXAM DATE/TIME: 12/30/2016 20:22 [facility] COMPARISON: CHEST PA & LAT, December 12, 2016, 9:02. INDICATIONS : Fever. MEDICAL HISTORY : Cardiovascular disease. SURGICAL HISTORY : None. ENCOUNTER: Initial ACUITY: 1 day PAIN SCORE: 0/10 LOCATION: Bilateral chest FINDINGS: Mild consolidation and a tiny effusion seen at the left lung base. Right lung is clear. No pneumothor ax. Heart size stable, upper limits of normal. CONCLUSION: Trace consolidation and tiny pleural effusion at the left base. Marcus Montano MD on December 30, 2016 at 20:54 Board Certified Radiologist. This report was verified electronically.
[2016-12-30 21:00] VITALS: BP 115/56; PULSE 96; RESP 18; O2SAT 96
[2016-12-30 21:09] LABS: AUTOMATED NEUTROPHIL # 15.2 TH/MM3 (1.8-7.7); BASOPHIL # 0.1 TH/MM3 (0-0.2); BASOPHIL % 0.3 % (0.0-2.0); EOSINOPHIL % 0.1 % (0.0-4.0); HEMATOCRIT 34.6 % (35.0-46.0); HEMO FLAGS DIFF FINAL; LYMPH % 6.1 % (9.0-44.0); MEAN CELL VOLUME 88.9 FL (80.0-100.0); MEAN CORPUSCULAR HEMOGLOBIN 29.7 PG (27.0-34.0); MEAN CORPUSCULAR HGB CONC 33.4 % (32.0-36.0); MONO % 3.9 % (0.0-8.0); NEUT % 89.6 % (16.0-70.0); PLATELET COUNT 459 TH/MM3 (150-450); RED BLOOD COUNT 3.89 MIL/MM3 (4.00-5.30); RED CELL DISTRIBUTION WIDTH 14.5 % (11.6-17.2)
[2016-12-30 21:21] LABS: APTT (PATIENT) 28.9 SEC (24.3-30.1); INTERNATIONAL NORMALIZED RATIO 1.1 RATIO; PROTHROMBIN TIME - PATIENT 12.3 SEC (9.8-11.6)
[2016-12-30 21:25] LABS: ALT (GPT) 20 U/L (10-53); ANION GAP 9 MEQ/L (5-15); AST (GOT) 23 U/L (15-37); BICARBONATE 25.1 MEQ/L (21.0-32.0); BLOOD UREA NITROGEN 21 MG/DL (7-18); CHLORIDE 96 MEQ/L (98-107); GLOMERULAR FILTRATION RATE 65 ML/MIN (>89); MAGNESIUM 2.1 MG/DL (1.5-2.5); POTASSIUM 3.9 MEQ/L (3.5-5.1); SODIUM (NA) 130 MEQ/L (136-145)
[2016-12-30 21:28] LABS: ALKALINE PHOSPHATASE 166 U/L (45-117); TOTAL BILIRUBIN ADULT 0.4 MG/DL (0.2-1.0)
[2016-12-30] MEDS ORDERED: SODIUM CHLOR 0.9% 1000 ML INJ 1,000 ML IV ONE (21:30)
[2016-12-30] MEDS ORDERED: cefTRIAXone INJ 1,000 MG in SODIUM CHLORIDE 0.9% INJ 100 ML IV ONE (21:30)
[2016-12-30] MEDS ORDERED: ACETAMINOPHEN 325 MG TAB PO ONE (21:30)
[2016-12-30 21:58] LABS: BLOOD, URINE NEG (NEG); COMMENT (UR) CULT NOT INDICATED; CULTURE IF INDICATED CULT NOT INDICATED; GLUCOSE,URINE NEG (NEG); KETONE, URINE NEG (NEG); MUCUS URINE FEW /lpf (OCC); NITRITE,URINE NEG (NEG); SQUAMOUS EPITHELIAL CELL URINE <1 /hpf (0-5); URINE COLOR YELLOW (YELLW/STRAW)
[2016-12-30 22:00] VITALS: BP 118/58; PULSE 93; RESP 18
[2016-12-30] MEDS ORDERED: IOHEXOL 350 MG/ML 10 ML VIAL (for RAD DIAG) IV ONE (22:01)
[2016-12-30] MEDS ORDERED: VANCOMYCIN INJ 1,000 MG in SODIUM CHLOR 0.9% 250 ML INJ 250 ML IV STA (22:13)
--- NOTE | 2016-12-30 22:25 | RADRPT ---
EXAM DATE/TIME: 12/30/2016 21:58 This report includes an Addendum and supersedes previous reports for this exam. [facility] COMPARISON: No previous studies available for comparison. INDICATIONS : General weakness and fever. Status post-op 2 weeks laparotomy and rectal prolapse repair. IV CONTRAST: 99 cc Omnipaque 350 (iohexol) IV ORAL CONTRAST: No oral contrast ingested. RADIATION DOSE: CTDIvol (mGy) MEDICAL HISTORY : None SURGICAL HISTORY : Right hip replacement. Prolapse rectum repair. ENCOUNTER: Initial ACUITY: 1 day PAIN SCALE: 2/10 LOCATION: Bilateral abdomen TECHNIQUE: Volumetric scanning of the abdomen and pelvis was performed. Using automated exposure control and ad justment of the mA and/or kV according to patient size, radiation dose was kept as low as reasonably achievable to obtain optimal diagnostic quality images. DICOM format image data is available electro nically for review and comparison. FINDINGS: There is evidence of a recent midline laparotomy. Skin janki remain in place. There is an elongated air/debris collection with trace fluid within the anterior abdominal wall and measuring approximatel y 18 mm across and roughly 10 cm in length in between the umbilicus and pubic symphysis. I believe th ere is some mesh at the level of the umbilicus. Inferior to this a is an approximately 15 mm focus of enhancement suggesting a tiny fluid collection and/or possible fistula tract. Deep margin of this is inseparable from fluid filled loops of colon, for example series 2 image 58. An anastomosis is seen in the region of the rectosigmoid junction. The colon is fluid filled but nond istended. I also don't see any significant wall thickening. No evidence of obstruction. 24 mm stone seen in the gallbladder. There is atherosclerosis of the abdominal aorta. 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 No acute abnormality seen the liver, spl een, pancreas, adrenal glands or kidneys. No acute bony abnormality demonstrated. Trace atelectasis seen of the visualized lung bases. Left josue ast implant noted. Apparent previous right mastectomy. CONCLUSION: Recent midline laparotomy. Elongated debris collection within the anterior abdominal wall and potenti ally a developing fistula track within the anterior aspect of the underlying peritoneal space. I don' t see a drainable abscess. No bowel obstruction. Marcus Montano MD on December 30, 2016 at 22:14 Board Certified Radiologist. This report was verified electronically. ADDENDUM: Per the colorectal surgeon, the anterior abdominal wound has been recently open and packed, would exp leisa the elongated debris/air collection within the anterior bowel wall. Marcus Montano MD on December 30, 2016 at 22:36 Board Certified Radiologist. This report was verified electronically.
[2016-12-30] MEDS ORDERED: Vancomycin Consult Pharmacy 1 EA OTHER SCH (22:45)
[2016-12-30] MEDS ORDERED: VANCOMYCIN INJ 1,000 MG in SODIUM CHLOR 0.9% 250 ML INJ 250 ML IV SCH (22:45)
[2016-12-30] MEDS ORDERED: VANCOMYCIN INJ 1,750 MG in SODIUM CHLORID 0.9% 500 ML INJ 500 ML IV ONE (23:00)
[2016-12-30] MEDS: SODIUM CHLOR 0.9% 1000 ML INJ 1,000 ML IV SCH (23:50)
[2016-12-30 23:51] VITALS: BP 121/54; PULSE 88; RESP 17; TEMP 98.7; O2SAT 97
[2016-12-31 01:30] VITALS: BP 138/66; PULSE 92; RESP 18; TEMP 97; O2SAT 97
[2016-12-31 04:00] VITALS: BP 140/70; PULSE 93; RESP 18; TEMP 97.4; O2SAT 98
[2016-12-31 08:00] VITALS: BP 160/74; PULSE 107; RESP 18; TEMP 100.9; O2SAT 99
[2016-12-31] MEDS: ACETAMINOPHEN 325 MG TAB PO PRN ×2 (08:37→19:37)
[2016-12-31] MEDS: PANTOPRAZOLE SOD 40 MG DELAYED RELEASE TAB PO SCH (08:37)
[2016-12-31] MEDS ORDERED: ONDANSETRON HCL 4 MG/2 ML VIAL IV PUSH PRN (09:45)
[2016-12-31] MEDS: cefTRIAXone INJ 1,000 MG in SODIUM CHLORIDE 0.9% INJ 100 ML IV SCH (11:35)
[2016-12-31] MEDS: SODIUM CHLOR 0.9% 1000 ML INJ 1,000 ML IV SCH (11:35)
[2016-12-31 12:00] VITALS: BP 133/62; PULSE 99; RESP 18; TEMP 99.9; O2SAT 99
[2016-12-31 16:00] VITALS: BP 144/63; PULSE 100; RESP 18; TEMP 100.8; O2SAT 96
[2016-12-31 16:41] LABS: AUTOMATED NEUTROPHIL # 16.4 TH/MM3 (1.8-7.7); BASOPHIL % 0.1 % (0.0-2.0); EOSINOPHIL # 0.1 TH/MM3 (0-0.4); EOSINOPHIL % 0.4 % (0.0-4.0); HEMATOCRIT 28.9 % (35.0-46.0); HEMO FLAGS DIFF FINAL; LYMPH % 6.4 % (9.0-44.0); LYMPHOCYTE # 1.1 TH/MM3 (1.0-4.8); MEAN CELL VOLUME 90.1 FL (80.0-100.0); MEAN CORPUSCULAR HEMOGLOBIN 29.4 PG (27.0-34.0); MEAN CORPUSCULAR HGB CONC 32.6 % (32.0-36.0); NEUT % 91.1 % (16.0-70.0); PLATELET COUNT 383 TH/MM3 (150-450); RED CELL DISTRIBUTION WIDTH 14.6 % (11.6-17.2)
[2016-12-31 20:00] VITALS: BP 110/58; PULSE 102; RESP 18; TEMP 98.8; O2SAT 96
[2016-12-31] MEDS: VANCOMYCIN INJ 1,250 MG in SODIUM CHLOR 0.9% 250 ML INJ 250 ML IV SCH (22:53)
[2016-12-31] MEDS: PILOCARPINE HCL 5 MG TAB PO SCH (22:53)
[2017-01-01] VITALS: BP 159/72; PULSE 96; RESP 19; TEMP 96.5; O2SAT 99
[2017-01-01] MEDS: SODIUM CHLOR 0.9% 1000 ML INJ 1,000 ML IV SCH (01:40)
[2017-01-01 04:00] VITALS: BP 129/67; PULSE 103; RESP 19; TEMP 96.7; O2SAT 97
[2017-01-01] MEDS: PILOCARPINE HCL 5 MG TAB PO SCH ×3 (06:40→22:23)
[2017-01-01 06:53] LABS: ALT (GPT) 16 U/L (10-53); ANION GAP 8 MEQ/L (5-15); AST (GOT) 14 U/L (15-37); BICARBONATE 22.3 MEQ/L (21.0-32.0); BLOOD UREA NITROGEN 18 MG/DL (7-18); CHLORIDE 105 MEQ/L (98-107); GLOMERULAR FILTRATION RATE 105 ML/MIN (>89); POTASSIUM 3.9 MEQ/L (3.5-5.1); SODIUM (NA) 135 MEQ/L (136-145)
[2017-01-01 06:55] LABS: ALKALINE PHOSPHATASE 138 U/L (45-117); TOTAL BILIRUBIN ADULT 0.4 MG/DL (0.2-1.0)
[2017-01-01 07:23] LABS: AUTOMATED NEUTROPHIL # 14.4 TH/MM3 (1.8-7.7); BASOPHIL % 0.2 % (0.0-2.0); EOSINOPHIL # 1.3 TH/MM3 (0-0.4); EOSINOPHIL % 7.4 % (0.0-4.0); HEMATOCRIT 31.2 % (35.0-46.0); HEMO FLAGS DIFF FINAL; LYMPH % 5.7 % (9.0-44.0); MEAN CELL VOLUME 89.5 FL (80.0-100.0); MEAN CORPUSCULAR HEMOGLOBIN 30.3 PG (27.0-34.0); MEAN CORPUSCULAR HGB CONC 33.9 % (32.0-36.0); MONO % 3.1 % (0.0-8.0); NEUT % 83.6 % (16.0-70.0); PLATELET COUNT 413 TH/MM3 (150-450); RED BLOOD COUNT 3.48 MIL/MM3 (4.00-5.30); RED CELL DISTRIBUTION WIDTH 14.7 % (11.6-17.2); WHITE BLOOD COUNT 17.3 TH/MM3 (4.0-11.0)
[2017-01-01 07:50] VITALS: BP 150/73; PULSE 97; RESP 20; TEMP 98.9; O2SAT 95
[2017-01-01] MEDS: VALSARTAN 160 MG TAB PO SCH (08:29)
[2017-01-01] MEDS: ASPIRIN EC 81 MG TABEC PO SCH (08:29)
[2017-01-01] MEDS: HYDROCHLOROTHIAZIDE 12.5 MG CAP PO SCH (08:29)
[2017-01-01] MEDS: PANTOPRAZOLE SOD 40 MG DELAYED RELEASE TAB PO SCH (08:30)
[2017-01-01] MEDS: MULTIVITAMINS/MINERALS THERAPEUTIC TAB PO SCH (08:30)
[2017-01-01] MEDS: ATORVASTATIN 10 MG TAB PO SCH (08:30)
[2017-01-01] MEDS: HYDROXYCHLOROQUINE SULFATE 200 MG TAB PO SCH (08:30)
[2017-01-01] MEDS: cefTRIAXone INJ 1,000 MG in SODIUM CHLORIDE 0.9% INJ 100 ML IV SCH (08:31)
[2017-01-01] MEDS ORDERED: NON-FORMULARY DRUG (Glucosamine Sulfate 2,000 MG) PO SCH (09:00)
[2017-01-01] MEDS ORDERED: [UNRECOGNIZED DRUG - OTHER] PO SCH (09:00)
--- NOTE | 2017-01-01 10:09 | HHI.PR ---
Subjective Remarks C/R Surg Temp down, VSS some sweating PO everton, less diarrhea Objective - Vital Signs Date Time Temp Pulse Resp B/P Pulse Ox O2 Delivery O2 Flow Rate FiO2 01/01/17 07:50 98.9 97 20 150/73 95 12/30/16 20:27 Room Air Result Diagram: 01/01/1761801/01/17618 Objective Remarks PE alert Abd - soft, wound dry, less red A/P Assessment and Plan Imp: cultures - MRSA, sens pending cont wound care OOB lax Justin Mi MD Jan 01, 2017 10:09
[2017-01-01] MEDS ORDERED: SODIUM CHLORIDE FLUSH PRN IV FLUSH (10:45)
[2017-01-01] MEDS: POLYETHYLENE GLYCOL 17 GM PKG PO SCH (11:00)
[2017-01-01 11:30] VITALS: BP 120/83; PULSE 84; RESP 20; TEMP 97.9; O2SAT 98
[2017-01-01] MEDS: POLYMYXIN B IRRIGATION SCH ×2 (13:06→22:45)
[2017-01-01] MEDS: CLINDAMYCIN IRRIGATION SCH ×2 (13:06→22:45)
[2017-01-01] MEDS: [UNRECOGNIZED DRUG - OTHER] IRRIGATION SCH ×2 (13:06→22:45)
[2017-01-01] MEDS: GENTAMICIN IRRIGATION SCH ×2 (13:06→22:45)
[2017-01-01 15:21] LABS: C. DIFF EPI 027 PRESUMPTIVE NEGATIVE (NEGATIVE)
[2017-01-01 15:45] VITALS: BP 149/71; PULSE 96; RESP 20; TEMP 98.2; O2SAT 97
[2017-01-01] MEDS: metroNIDAZOLE 500 MG TAB PO SCH ×2 (17:38→22:22)
[2017-01-01 20:00] VITALS: BP 145/65; PULSE 94; RESP 17; TEMP 97.4; O2SAT 97
[2017-01-01] MEDS: VANCOMYCIN INJ 1,250 MG in SODIUM CHLOR 0.9% 250 ML INJ 250 ML IV SCH (22:22)
[2017-01-01] MEDS: SODIUM CHLORIDE FLUSH BID IV FLUSH SCH (22:23)
--- NOTE | 2017-01-01 22:59 | MH ---
cc: IZABELA JACOBS M.D. DATE OF ADMISSION 12/30/2016 REASON FOR ADMISSION Temperature, possible sepsis. HISTORY OF PRESENT ILLNESS Ms. Gibson is an 86-year-old female who spent 2 weeks after an exploratory laparotomy and rectopexy done for recurrent rectal prolapse. The patient did well postoperatively and has been seen in the office having the lower pole of the wound opened for a fluid collection, seroma. She has been having home health at home do wet-to-dry dressings and has been seen in the office and done well. She woke up the morning of admission, noticing some general fatigue and reportedly had fever of 103. Has had no appetite but has not had any nausea or vomiting. Did have one episode of loose stools but does take laxatives to keep her bowels soft. Denies any abdominal distension. She has been having urinary frequency but no burning or hematuria. Denies any cough or sputum production. No rectal bleeding or recurrent prolapse. The patient was evaluated in the emergency room and did have a fever of 101. She had an elevated white count of 17,000 with an elevated C reactive protein. CAT scan showed some inflammatory changes consistent with her open wound but no abscess formation. She was admitted for additional antibiotics and more vigorous wound care. Please see her recent admission for more complete past medical and surgical history. PERTINENT PHYSICAL GENERAL: Very pleasant older female in no acute distress. HEENT: Remarkable for dry but pink membranes, nonicteric sclera. Neck was supple without gross adenopathy. CHEST: Relatively clear, symmetrical expanding. HEART: Heart had a regular rhythm. ABDOMEN: Was very soft and flat. Midline wound was slightly reddened and opened in the lower pole, tunnelling up from the lower pole toward the umbilicus with a clean tract. Granulation tissue at the base. No sign of any exudate or discharge. Very little tenderness or tympany. EXTREMITIES: Show no cyanosis or clubbing and only 1+ pedal edema. LABORATORY FINDINGS All reviewed. IMPRESSION Status post exploratory laparotomy and rectopexy. She has had no recurrence of her prolapse. Open wound does not appear to be significant source for a fever of 103. She will be empirically started on antibiotics and have increased wet-to-dry dressing of the wound with irrigation with either hydrogen peroxide or GCP solution. With the diarrhea will check for stool for C. Diff. Chance that her perioperative antibiotics may have given her C. Diff type infection. Her diet will be continued and she will be maintained on the stool softener to avoid straining after the prolapse repair. MD MARIKA Hauser/PAT /10:23 PM /10:43 PM
[2017-01-02] VITALS: BP 151/70; PULSE 103; RESP 17; TEMP 98.8; O2SAT 96
[2017-01-02 04:00] VITALS: BP 153/76; PULSE 105; RESP 18; TEMP 99.4; O2SAT 97
[2017-01-02] MEDS: metroNIDAZOLE 500 MG TAB PO SCH ×3 (05:52→21:56)
[2017-01-02] MEDS: PILOCARPINE HCL 5 MG TAB PO SCH ×3 (05:52→21:56)
[2017-01-02] MEDS: CLINDAMYCIN IRRIGATION SCH ×3 (05:59→22:08)
[2017-01-02] MEDS: POLYMYXIN B IRRIGATION SCH ×3 (05:59→22:08)
[2017-01-02] MEDS: GENTAMICIN IRRIGATION SCH ×3 (05:59→22:08)
[2017-01-02] MEDS: [UNRECOGNIZED DRUG - OTHER] IRRIGATION SCH ×3 (05:59→22:08)
[2017-01-02 07:30] VITALS: BP 140/64; PULSE 87; RESP 20; TEMP 98.2; O2SAT 99
--- NOTE | 2017-01-02 07:52 | HHI.PR ---
Subjective Remarks C/R Surg Temp down, VSS some sweating PO everton, less diarrhea feels stronger Objective - Vital Signs Date Time Temp Pulse Resp B/P Pulse Ox O2 Delivery O2 Flow Rate FiO2 01/02/17 04:00 99.4 105 18 153/76 97 12/30/16 20:27 Room Air Result Diagram: 01/01/1761801/01/17618 Objective Remarks PE alert Abd - soft, wound dry, clean A/P Assessment and Plan Imp: cultures - MRSA, sens pending cont wound care stool +c.diff - on flagyl OOB lax prn Justin Mi MD Jan 02, 2017 07:52
[2017-01-02] MEDS: HYDROCHLOROTHIAZIDE 12.5 MG CAP PO SCH (09:06)
[2017-01-02] MEDS: VALSARTAN 160 MG TAB PO SCH (09:06)
[2017-01-02] MEDS: POLYETHYLENE GLYCOL 17 GM PKG PO SCH (09:07)
[2017-01-02] MEDS: HYDROXYCHLOROQUINE SULFATE 200 MG TAB PO SCH (09:07)
[2017-01-02] MEDS: ATORVASTATIN 10 MG TAB PO SCH (09:07)
[2017-01-02] MEDS: PANTOPRAZOLE SOD 40 MG DELAYED RELEASE TAB PO SCH (09:07)
[2017-01-02] MEDS: MULTIVITAMINS/MINERALS THERAPEUTIC TAB PO SCH (09:07)
[2017-01-02] MEDS: ASPIRIN EC 81 MG TABEC PO SCH (09:07)
[2017-01-02] MEDS: SODIUM CHLORIDE FLUSH BID IV FLUSH SCH ×2 (09:08→21:55)
[2017-01-02 11:50] VITALS: BP 125/69; PULSE 89; RESP 20; TEMP 99.2; O2SAT 98
[2017-01-02] MEDS: cefTRIAXone INJ 1,000 MG in SODIUM CHLORIDE 0.9% INJ 100 ML IV SCH (11:55)
[2017-01-02 15:50] VITALS: BP 123/69; PULSE 87; RESP 20; TEMP 98.3; O2SAT 99
[2017-01-02 20:00] VITALS: BP 116/59; PULSE 95; RESP 16; TEMP 96.3; O2SAT 96
[2017-01-02] MEDS ORDERED: PHARMACY ORDERED LAB ONE (21:45)
[2017-01-02] MEDS: VANCOMYCIN INJ 1,250 MG in SODIUM CHLOR 0.9% 250 ML INJ 250 ML IV SCH (23:31)
[2017-01-03] VITALS: BP 133/65; PULSE 96; RESP 16; TEMP 98.9; O2SAT 97
[2017-01-03 04:00] VITALS: BP 151/73; PULSE 98; RESP 16; TEMP 97.2; O2SAT 97
[2017-01-03] MEDS: PILOCARPINE HCL 5 MG TAB PO SCH ×3 (05:13→21:27)
[2017-01-03] MEDS: metroNIDAZOLE 500 MG TAB PO SCH ×3 (05:13→21:27)
[2017-01-03] MEDS: CLINDAMYCIN IRRIGATION SCH ×3 (05:23→21:27)
[2017-01-03] MEDS: GENTAMICIN IRRIGATION SCH ×3 (05:23→21:27)
[2017-01-03] MEDS: POLYMYXIN B IRRIGATION SCH ×3 (05:23→21:27)
[2017-01-03] MEDS: [UNRECOGNIZED DRUG - OTHER] IRRIGATION SCH ×3 (05:23→21:27)
[2017-01-03 08:00] VITALS: BP 114/69; PULSE 91; RESP 20; TEMP 97.2; O2SAT 93
[2017-01-03 09:08] LABS: BASOPHIL # 0.1 TH/MM3 (0-0.2); EOSINOPHIL # 1.2 TH/MM3 (0-0.4); EOSINOPHIL % 16.4 % (0.0-4.0); HEMATOCRIT 32.3 % (35.0-46.0); HEMO FLAGS DIFF FINAL; LYMPH % 19.7 % (9.0-44.0); LYMPHOCYTE # 1.4 TH/MM3 (1.0-4.8); MEAN CELL VOLUME 88.8 FL (80.0-100.0); MEAN CORPUSCULAR HEMOGLOBIN 29.9 PG (27.0-34.0); MEAN CORPUSCULAR HGB CONC 33.6 % (32.0-36.0); MONO % 8.5 % (0.0-8.0); NEUT % 54.4 % (16.0-70.0); PLATELET COUNT 472 TH/MM3 (150-450); RED BLOOD COUNT 3.63 MIL/MM3 (4.00-5.30); RED CELL DISTRIBUTION WIDTH 14.5 % (11.6-17.2); WHITE BLOOD COUNT 7.4 TH/MM3 (4.0-11.0)
[2017-01-03] MEDS: cefTRIAXone INJ 1,000 MG in SODIUM CHLORIDE 0.9% INJ 100 ML IV SCH (10:13)
[2017-01-03] MEDS: ASPIRIN EC 81 MG TABEC PO SCH (10:14)
[2017-01-03] MEDS: ATORVASTATIN 10 MG TAB PO SCH (10:14)
[2017-01-03] MEDS: HYDROCHLOROTHIAZIDE 12.5 MG CAP PO SCH (10:14)
[2017-01-03] MEDS: MULTIVITAMINS/MINERALS THERAPEUTIC TAB PO SCH (10:14)
[2017-01-03] MEDS: VALSARTAN 160 MG TAB PO SCH (10:14)
[2017-01-03] MEDS: PANTOPRAZOLE SOD 40 MG DELAYED RELEASE TAB PO SCH (10:14)
[2017-01-03] MEDS: HYDROXYCHLOROQUINE SULFATE 200 MG TAB PO SCH (10:14)
[2017-01-03] MEDS: SODIUM CHLORIDE FLUSH BID IV FLUSH SCH ×2 (10:17→21:28)
[2017-01-03] MEDS: POLYETHYLENE GLYCOL 17 GM PKG PO SCH (10:17)
[2017-01-03 11:20] VITALS: BP 122/59; PULSE 90; RESP 20; TEMP 97.4; O2SAT 94
[2017-01-03 16:00] VITALS: BP 138/77; PULSE 104; RESP 20; TEMP 99; O2SAT 100
[2017-01-03] MEDS: VANCOMYCIN INJ 1,250 MG in SODIUM CHLOR 0.9% 250 ML INJ 250 ML IV SCH (16:33)
--- NOTE | 2017-01-03 18:17 | HHI.PR ---
Subjective Remarks C/R Surg Temp down, VSS some sweating at night PO everton, less diarrhea feels stronger Objective - Vital Signs Date Time Temp Pulse Resp B/P Pulse Ox O2 Delivery O2 Flow Rate FiO2 01/03/17 16:00 99.0 104 20 138/77 100 12/30/16 20:27 Room Air Result Diagram: 01/03/17 0745 01/03/17 0745 Objective Remarks PE alert Abd - soft, wound dry, clean/granulating A/P Assessment and Plan Imp: cultures - MRSA, sens pending - reviewed cont wound care stool +c.diff - on flagyl OOB lax prn dc plans - check blood cultures Justin Mi MD Jan 03, 2017 18:17
[2017-01-03 20:00] VITALS: BP 158/72; PULSE 105; RESP 17; TEMP 98; O2SAT 99
[2017-01-04] VITALS: BP 134/67; PULSE 88; RESP 16; TEMP 97; O2SAT 99
[2017-01-04 04:00] VITALS: BP 138/67; PULSE 83; RESP 16; TEMP 97.2; O2SAT 98
[2017-01-04] MEDS: GENTAMICIN IRRIGATION SCH ×3 (06:03→21:27)
[2017-01-04] MEDS: CLINDAMYCIN IRRIGATION SCH ×3 (06:03→21:27)
[2017-01-04] MEDS: POLYMYXIN B IRRIGATION SCH ×3 (06:03→21:27)
[2017-01-04] MEDS: PILOCARPINE HCL 5 MG TAB PO SCH ×3 (06:03→21:27)
[2017-01-04] MEDS: metroNIDAZOLE 500 MG TAB PO SCH ×3 (06:03→21:27)
[2017-01-04] MEDS: [UNRECOGNIZED DRUG - OTHER] IRRIGATION SCH ×3 (06:03→21:27)
[2017-01-04 08:59] VITALS: BP 149/77; PULSE 110; RESP 20; TEMP 97.6; O2SAT 97
[2017-01-04] MEDS: VANCOMYCIN INJ 1,250 MG in SODIUM CHLOR 0.9% 250 ML INJ 250 ML IV SCH (10:14)
[2017-01-04] MEDS: HYDROXYCHLOROQUINE SULFATE 200 MG TAB PO SCH (10:18)
[2017-01-04] MEDS: HYDROCHLOROTHIAZIDE 12.5 MG CAP PO SCH (10:18)
[2017-01-04] MEDS: MULTIVITAMINS/MINERALS THERAPEUTIC TAB PO SCH (10:18)
[2017-01-04] MEDS: ATORVASTATIN 10 MG TAB PO SCH (10:18)
[2017-01-04] MEDS: ASPIRIN EC 81 MG TABEC PO SCH (10:18)
[2017-01-04] MEDS: PANTOPRAZOLE SOD 40 MG DELAYED RELEASE TAB PO SCH (10:18)
[2017-01-04] MEDS: VALSARTAN 160 MG TAB PO SCH (10:18)
[2017-01-04] MEDS: SODIUM CHLORIDE FLUSH BID IV FLUSH SCH ×2 (10:19→21:27)
[2017-01-04] MEDS: POLYETHYLENE GLYCOL 17 GM PKG PO SCH (10:19)
[2017-01-04 12:18] VITALS: BP 147/70; PULSE 100; RESP 20; TEMP 98.6; O2SAT 99
--- NOTE | 2017-01-04 12:26 | HHI.PR ---
Subjective Remarks MRSA wound infection, c diff colitis Comfortable Objective Vital Signs Date Time Temp Pulse Resp B/P Pulse Ox O2 Delivery O2 Flow Rate FiO2 01/04/17 12:18 98.6 100 20 147/70 99 01/04/17 08:59 97.6 110 20 149/77 97 01/04/17 04:00 97.2 83 16 138/67 98 01/04/17 00:00 97.0 88 16 134/67 99 01/03/17 20:00 98.0 105 17 158/72 99 01/03/17 16:00 99.0 104 20 138/77 100 I/O 01/03/17 01/03/17 01/03/17 01/04/17 01/04/17 01/04/17 07:00 15:00 23:00 07:00 15:00 23:00 Intake Total 600 ml 480 ml 880 ml 240 ml Output Total 750 ml 900 ml 250 ml 800 ml Balance -150 ml -420 ml 630 ml -560 ml Intake Oral 600 ml 480 ml 880 ml 240 ml Output Urine Total 750 ml 900 ml 250 ml 800 ml # Voids 6 # Bowel Movements 0 0 Result Diagram: 01/03/17 0745 01/03/17 0745 Objective Remarks Wound clean Assessment and Plan Assessment and Plan MRSA wound infection continue w-d dressing changes bid cdiff colitis continue antibiotics Blanca Samuels MD Jan 04, 2017 12:26
[2017-01-04 16:03] VITALS: BP 111/59; PULSE 109; RESP 20; TEMP 97.2; O2SAT 98
[2017-01-04 20:00] VITALS: BP 111/65; PULSE 112; RESP 16; TEMP 97.8; O2SAT 97
[2017-01-05] VITALS: BP 141/77; PULSE 107; RESP 17; TEMP 97.5; O2SAT 98
[2017-01-05] MEDS: VANCOMYCIN INJ 1,250 MG in SODIUM CHLOR 0.9% 250 ML INJ 250 ML IV SCH ×2 (02:37→21:26)
[2017-01-05 04:00] VITALS: BP 155/77; PULSE 98; RESP 16; TEMP 97.4; O2SAT 98
[2017-01-05] MEDS: POLYMYXIN B IRRIGATION SCH ×3 (05:11→23:43)
[2017-01-05] MEDS: CLINDAMYCIN IRRIGATION SCH ×3 (05:11→23:43)
[2017-01-05] MEDS: [UNRECOGNIZED DRUG - OTHER] IRRIGATION SCH ×3 (05:11→23:43)
[2017-01-05] MEDS: PILOCARPINE HCL 5 MG TAB PO SCH ×3 (05:11→21:16)
[2017-01-05] MEDS: metroNIDAZOLE 500 MG TAB PO SCH ×3 (05:11→21:16)
[2017-01-05] MEDS: GENTAMICIN IRRIGATION SCH ×3 (05:11→23:43)
[2017-01-05 08:00] VITALS: BP 153/74; PULSE 101; RESP 20; TEMP 97.4; O2SAT 98
[2017-01-05] MEDS: MULTIVITAMINS/MINERALS THERAPEUTIC TAB PO SCH (09:22)
[2017-01-05] MEDS: PANTOPRAZOLE SOD 40 MG DELAYED RELEASE TAB PO SCH (09:22)
[2017-01-05] MEDS: VALSARTAN 160 MG TAB PO SCH (09:22)
[2017-01-05] MEDS: HYDROCHLOROTHIAZIDE 12.5 MG CAP PO SCH (09:22)
[2017-01-05] MEDS: POLYETHYLENE GLYCOL 17 GM PKG PO SCH (09:22)
[2017-01-05] MEDS: SODIUM CHLORIDE FLUSH BID IV FLUSH SCH ×2 (09:22→21:16)
[2017-01-05] MEDS: HYDROXYCHLOROQUINE SULFATE 200 MG TAB PO SCH (09:22)
[2017-01-05] MEDS: ASPIRIN EC 81 MG TABEC PO SCH (09:22)
[2017-01-05] MEDS: ATORVASTATIN 10 MG TAB PO SCH (09:22)
[2017-01-05 12:00] VITALS: BP 113/72; PULSE 98; RESP 21; TEMP 97.5; O2SAT 96
[2017-01-05 16:38] VITALS: BP 110/59; PULSE 102; RESP 20; TEMP 97.2; O2SAT 98
[2017-01-05 20:00] VITALS: BP 106/59; PULSE 109; RESP 16; TEMP 97.4; O2SAT 98
[2017-01-05] MEDS ORDERED: PHARMACY ORDERED LAB ONE (20:45)
[2017-01-06] VITALS: BP 135/60; PULSE 96; RESP 16; TEMP 97.2; O2SAT 97
[2017-01-06 04:00] VITALS: BP_SYST 115; BP_SYST 136; BP_DIAS 57; BP_DIAS 64; PULSE 81; PULSE 88; RESP 17; RESP 18; TEMP 97.4; TEMP 97.7; O2SAT 97; O2SAT 98
[2017-01-06] MEDS: CLINDAMYCIN IRRIGATION SCH ×3 (06:54→19:30)
[2017-01-06] MEDS: POLYMYXIN B IRRIGATION SCH ×3 (06:54→19:30)
[2017-01-06] MEDS: PILOCARPINE HCL 5 MG TAB PO SCH ×3 (06:54→22:44)
[2017-01-06] MEDS: metroNIDAZOLE 500 MG TAB PO SCH ×3 (06:54→22:44)
[2017-01-06] MEDS: [UNRECOGNIZED DRUG - OTHER] IRRIGATION SCH ×3 (06:54→19:30)
[2017-01-06] MEDS: GENTAMICIN IRRIGATION SCH ×3 (06:54→19:30)
[2017-01-06 08:00] VITALS: BP 119/72; PULSE 114; RESP 20; TEMP 97.8; O2SAT 97
[2017-01-06] MEDS: ATORVASTATIN 10 MG TAB PO SCH (09:53)
[2017-01-06] MEDS: ASPIRIN EC 81 MG TABEC PO SCH (09:53)
[2017-01-06] MEDS: VALSARTAN 160 MG TAB PO SCH (09:53)
[2017-01-06] MEDS: PANTOPRAZOLE SOD 40 MG DELAYED RELEASE TAB PO SCH (09:53)
[2017-01-06] MEDS: MULTIVITAMINS/MINERALS THERAPEUTIC TAB PO SCH (09:54)
[2017-01-06] MEDS: HYDROCHLOROTHIAZIDE 12.5 MG CAP PO SCH (09:54)
[2017-01-06] MEDS: HYDROXYCHLOROQUINE SULFATE 200 MG TAB PO SCH (09:54)
[2017-01-06] MEDS: POLYETHYLENE GLYCOL 17 GM PKG PO SCH (09:55)
[2017-01-06] MEDS: SODIUM CHLORIDE FLUSH BID IV FLUSH SCH ×2 (09:55→22:46)
[2017-01-06 12:28] VITALS: BP 139/64; PULSE 82; RESP 20; TEMP 97.1; O2SAT 97
[2017-01-06] MEDS ORDERED: VANCOMYCIN 1,000 MG/NS 250 ML IV SCH ×2 (15:00)
[2017-01-06 16:39] VITALS: BP_SYST 108; BP_SYST 95; BP_DIAS 54; BP_DIAS 67; PULSE 104; PULSE 56; RESP 20; TEMP 95.9; TEMP 98.5; O2SAT 100; O2SAT 97
[2017-01-06] MEDS ORDERED: METR-1 PO ×2 (17:44→17:55)
[2017-01-06] MEDS ORDERED: ZYVO600T PO ×2 (17:46→17:55)
[2017-01-06] MEDS ORDERED: LINEZOLID 600 MG TAB PO SCH (21:00)
[2017-01-06] MEDS: LINEZOLID 600 MG TAB PO SCH (22:44)
--- NOTE | 2017-01-06 23:23 | HHI.PR ---
Subjective Remarks C/R Surg Temp down, VSS some sweating at night PO everton, less diarrhea feels stronger Objective - Vital Signs Date Time Temp Pulse Resp B/P (MAP) Pulse Ox O2 Delivery O2 Flow Rate FiO2 01/06/17 16:39 98.5 104 20 95/54 68 97 Result Diagram: 01/03/17 0745 01/05/17 0335 Objective Remarks PE alert Abd - soft, wound dry, clean/granulating, no disch A/P Assessment and Plan Imp: cultures - MRSA, sens pending - reviewed cont wound care stool +c.diff - on flagyl OOB lax prn dc plans - check blood cultures, PO meds Justin Mi MD Jan 06, 2017 23:23
[2017-01-07] VITALS: BP 124/64; PULSE 96; RESP 18; TEMP 97.1; O2SAT 98
[2017-01-07 04:17] VITALS: BP 143/65; PULSE 89; RESP 18; TEMP 98; O2SAT 96
[2017-01-07] MEDS: GENTAMICIN IRRIGATION SCH ×2 (04:35→16:53)
[2017-01-07] MEDS: [UNRECOGNIZED DRUG - OTHER] IRRIGATION SCH ×2 (04:35→16:53)
[2017-01-07] MEDS: CLINDAMYCIN IRRIGATION SCH ×2 (04:35→16:53)
[2017-01-07] MEDS: POLYMYXIN B IRRIGATION SCH ×2 (04:35→16:53)
[2017-01-07] MEDS: PILOCARPINE HCL 5 MG TAB PO SCH ×2 (06:10→16:54)
[2017-01-07] MEDS: metroNIDAZOLE 500 MG TAB PO SCH ×2 (06:10→16:54)
[2017-01-07 08:00] VITALS: BP 120/73; PULSE 107; RESP 20; TEMP 97.3; O2SAT 95
[2017-01-07] MEDS: POLYETHYLENE GLYCOL 17 GM PKG PO SCH (11:04)
[2017-01-07] MEDS: LINEZOLID 600 MG TAB PO SCH (11:04)
[2017-01-07] MEDS: ASPIRIN EC 81 MG TABEC PO SCH (11:05)
[2017-01-07] MEDS: VALSARTAN 160 MG TAB PO SCH (11:05)
[2017-01-07] MEDS: HYDROCHLOROTHIAZIDE 12.5 MG CAP PO SCH (11:06)
[2017-01-07] MEDS: PANTOPRAZOLE SOD 40 MG DELAYED RELEASE TAB PO SCH (11:06)
[2017-01-07] MEDS: ATORVASTATIN 10 MG TAB PO SCH (11:06)
[2017-01-07] MEDS: MULTIVITAMINS/MINERALS THERAPEUTIC TAB PO SCH (11:06)
[2017-01-07] MEDS: HYDROXYCHLOROQUINE SULFATE 200 MG TAB PO SCH (11:06)
[2017-01-07] MEDS: SODIUM CHLORIDE FLUSH BID IV FLUSH SCH (11:07)
[2017-01-07 12:00] VITALS: BP 120/73; PULSE 101; RESP 18; TEMP 97.4; O2SAT 97
--- NOTE | 2017-01-07 15:09 | HHI.FF ---
Face to Face Verification Diagnosis: (1) Rectal prolapse (2) Staphylococcus aureus bacteremia (3) C. difficile colitis Physical Therapy Order: Evaluate and Treat, Improve ambulation, Strength and gait training Home Health Nursing Order: Medical education Signs/symptoms of disease process Wound care and dressing changes I have seen patient Marilee Gibson on 01/07/17. My clinical findings support the need for the requested home health care services because: Ltd mobility - disease progression Deconditioned w/ increased weakness Impaired cognition/judgement High risk of falls Infection w/ risk of complications I certify that my clinical findings support that this patient is homebound because: Post-op weakness Unable to use public transportation Justin Mi MD Jan 07, 2017 15:09
[2017-01-07 16:00] VITALS: BP 112/70; PULSE 95; RESP 18; TEMP 98.2; O2SAT 98
[2017-01-08] MEDS ORDERED: PHARMACY ORDERED LAB ONE (02:45)
--- NOTE | 2017-02-11 23:04 | MD ---
cc: IZABELA JACOBS M.D. ADMISSION DATE: 12/30/2016 DISCHARGE DATE: 01/07/2017 ADMISSION DIAGNOSIS Temperature status post rectal prolapse repair. PROCEDURES None. DISCHARGE DIAGNOSES MRSA bacteremia. Wound infection status post rectopexy. HISTORY OF PRESENT ILLNESS Ms. Gibson is an 86-year-old female who underwent a rectopexy about 2 weeks prior to admission for recurrent rectal prolapse. The patient was seen in the office and had some fluid in the lower part of the lower pole of the wound which was opened in the office, treated with wet-to-dry dressings. She woke up the morning of admission, noticing general fatigue reporting a fever of 103. She had no appetite but has not had any nausea or vomiting. Did have one episode of loose stools but did take some laxatives to keep her bowels soft. She denied any abdominal distension. Has been having urinary frequency but no burning or hematuria. Denies any cough or sputum production. No rectal bleeding or recurrent prolapse. The patient was evaluated in the emergency room, did have a fever of 101 and an elevated white count of 17,[address] scan showed inflammatory changes consistent with her open wound but no abscess formation. She was admitted for additional antibiotics and more vigorous wound care. Please see admitting history and physical for more complete past medical and surgical history. PERTINENT PHYSICAL GENERAL: Very pleasant, thin older female, no acute distress. ABDOMEN: The abdomen was very soft and flat. Midline wound was slightly reddened opened in the lower pole, tunnelling up toward the umbilicus with a very clean tract. Granulation tissue present at the base. There was mesh palpable in the upper pole of the incision. Very little tenderness or cellulitis. LABORATORY FINDINGS White count was 17,000, hemoglobin was 11.5. Electrolytes remarkable for alkaline phosphatase of 166. The C-reactive protein of 9.8, BUN of 21, creatinine of 0.83. HOSPITAL COURSE After admission, the patient was started on broad-spectrum antibiotics. Blood cultures grew MRSA and her antibiotics were adjusted appropriately. Her wound was treated with wet-to-dry dressings and more vigorous irrigations and responded well. She also had a stool stent which was positive for C. diff and she was treated with oral Flagyl. Her temperature came down to normal. She had repeat blood cultures which were negative. The patient was feeling much stronger, had much better appetite and was considered ready for discharge home on January 07, 2017. DISCHARGE INSTRUCTIONS The patient was discharged with additional wound care. Wet-to-dry dressings and home health care to assist in wound care. She was also to continue her antibiotics with the Flagyl and Zyvox for the MRSA bacteremia. The patient will be seen in the office in one week's time for routine follow-up. Any problems prior to the office visit she was instructed to call for more urgent attention. MD MARIKA Hauser/PAT /9:49 PM /10:47 PM
== END 2017-01-07 18:10 | disposition home or self-care (01) | DRG 863 ==
LOC: NEPC 20:06 → NEDA 22:43 → HOCA 12-31 00:45
PROVIDERS: ADMIT Colon & Rectal Surgery; ATTEND Colon & Rectal Surgery
DX: T81.4XXA Infection following a procedure, initial encounter (principal); A04.7 Enterocolitis due to Clostridium difficile; B95.62 Methicillin resistant Staphylococcus aureus infection as the cause of diseases classified elsewhere; M35.00 Sjogren syndrome, unspecified; R50.82 Postprocedural fever; I10 Essential (primary) hypertension; I25.10 Atherosclerotic heart disease of native coronary artery without angina pectoris; I25.2 Old myocardial infarction; Z90.10 Acquired absence of unspecified breast and nipple; Z85.3 Personal history of malignant neoplasm of breast; Z96.641 Presence of right artificial hip joint; R35.0 Frequency of micturition; Y92.9 Unspecified place or not applicable
CPT/HCPCS: 71010; 74177; 76937; 80053; 80202; 81001; 82565; 83605; 83735; 85025; 85610; 85730; 86140; 86403; 87040; 87147; 87186; 87493; 96374; J0696; J1580; J3370; J7030; J7050; P9612; Q9967

== ENCOUNTER 2017-09-17 12:38 | Inpatient (IN) | payer MEDICARE ==
[~2017-09-17] VITALS: Ht 167.6 cm; Wt 66.9 kg
[~2017-09-17 12:38] MED LIST changes: +CALC12502 PO; -CALC500T35 PO; -COLA100C PO; +COLA100C5 PO; +DEXAMETHASONE SOD PHOS 4 MG/ML VIAL IV ONE; +GLYCOPYRROLATE 1 MG/5 ML SYRINGE IV PUSH ONE; +LIDOCAINE HCL 1% PF 5 ML SYRINGE OTHER ONE; +METR-1 PO; +NEOSTIGMINE 5 MG/5 ML SYRINGE IV PUSH ONE; +ONDANSETRON HCL 4 MG/2 ML VIAL IV ONE; +PHENYLEPH/NS 1000 MCG/10 ML SYR IV ONE; +PHENYLEPHRINE HCL 10 MG/ML VIAL IV ONE; +PROPOFOL 200 MG/20 ML AMP IV ONE; +ROCURONIUM INJ 50 MG/5 ML SYRINGE IV PUSH ONE; +ZYVO600T PO; +ePHEDrine/NS 25 MG/5 ML SYRINGE IV ONE
[2017-09-17] MEDS ORDERED: LACTATED RINGER'S 1000 ML IV PRN (13:30)
[2017-09-17] MEDS ORDERED: METOPROLOL TARTRATE 25 MG TAB PO PRN (13:30)
[2017-09-17] MEDS ORDERED: METRONIDAZOLE 500 MG/100 ML ISONTONIC SOLN IV SCH (13:30)
[2017-09-17] MEDS ORDERED: SODIUM CHLORID 0.9% 500 ML IV PRN (13:30)
[2017-09-17] MEDS ORDERED: POVIDONE IODINE 5% (ANTISEPSIS KIT) 4 APPLICATIONS EACH NARE PRN (13:30)
[2017-09-17] MEDS ORDERED: ceFAZolin 1,000 MG/NS 100 ML IV SCH ×2 (13:30)
[2017-09-17] MEDS ORDERED: CHLORHEXIDINE GLUCONATE 2 % 1 PACK (2 CLOTHS) TOPICAL PRN (13:30)
[2017-09-17] MEDS ORDERED: DEXT 5%-NACL 0.9% 1000 ML INJ 1,000 ML IV SCH (14:00)
[2017-09-17 14:50] LABS: AUTOMATED NEUTROPHIL # 4.6 TH/MM3 (1.8-7.7); BASOPHIL % 0.7 % (0.0-2.0); EOSINOPHIL # 0.3 TH/MM3 (0-0.4); EOSINOPHIL % 4.5 % (0.0-4.0); HEMATOCRIT 34.8 % (35.0-46.0); HEMOGLOBIN 11.5 GM/DL (11.6-15.3); LYMPH % 20.7 % (9.0-44.0); LYMPHOCYTE # 1.5 TH/MM3 (1.0-4.8); MEAN CELL VOLUME 92.5 FL (80.0-100.0); MEAN CORPUSCULAR HEMOGLOBIN 30.5 PG (27.0-34.0); MEAN PLATELET VOLUME 9.2 FL (7.0-11.0); MONO % 8.4 % (0.0-8.0); MONOCYTE # 0.6 TH/MM3 (0-0.9); NEUT % 65.7 % (16.0-70.0); PLATELET COUNT 339 TH/MM3 (150-450); RED BLOOD COUNT 3.76 MIL/MM3 (4.00-5.30); RED CELL DISTRIBUTION WIDTH 15.1 % (11.6-17.2); WHITE BLOOD COUNT 7.1 TH/MM3 (4.0-11.0)
[2017-09-17 15:07] LABS: ALT (GPT) 22 U/L (10-53)
[2017-09-17 15:08] LABS: ALBUMIN 3.5 GM/DL (3.4-5.0); AST (GOT) 36 U/L (15-37); BICARBONATE 24.7 MEQ/L (21.0-32.0); BLOOD UREA NITROGEN 15 MG/DL (7-18); CALCIUM 9.1 MG/DL (8.5-10.1); CHLORIDE 103 MEQ/L (98-107); CREATININE 0.72 MG/DL (0.50-1.00); GLOMERULAR FILTRATION RATE 77 ML/MIN (>89); GLUCOSE,RANDOM 82 MG/DL (74-106); SODIUM (NA) 135 MEQ/L (136-145)
[2017-09-17 15:09] LABS: ALKALINE PHOSPHATASE 133 U/L (45-117); PROTHROMBIN TIME - PATIENT 10.3 SEC (9.8-11.6); TOTAL BILIRUBIN ADULT 0.4 MG/DL (0.2-1.0); TOTAL PROTEIN 7.4 GM/DL (6.4-8.2)
--- NOTE | 2017-09-17 15:27 | PD.HP.UP ---
H&P Update Note The Pre-Admit History and Physical Examination regarding the above named patient was reviewed (including, but not limited to, vital signs, heart, lungs, co-morbid conditions), and upon re-examination it is noted that: the patient's condition has not significantly changed since the last examination. Justin Mi MD September 17, 2017 15:27
[2017-09-17] MEDS ORDERED: ACETAMINOPHEN 1000 MG/100 ML 100 ML IV ONE (16:35)
[2017-09-17] MEDS ORDERED: FAMOTIDINE 20 MG/2 ML VIAL ONE (16:35)
[2017-09-17] MEDS ORDERED: ceFAZolin INJ 1,000 MG VIAL ONE (17:38)
[2017-09-17] MEDS ORDERED: HYDROmorphone HCL PF 2 MG/ML VIAL ONE (19:06)
[2017-09-17] MEDS ORDERED: DO NOT ADM ANY ANTICOAGULANT DRUGS PRN (19:15)
[2017-09-17] MEDS ORDERED: ENALAPRILAT 1.25 MG/ML VIAL IV PUSH PRN (19:15)
[2017-09-17] MEDS ORDERED: ENALAPRILAT 2.5 MG/2 ML VIAL IV PUSH PRN (19:15)
[2017-09-17] MEDS ORDERED: Post-op Orders (for Pharmacy) XX ONE (19:15)
[2017-09-17] MEDS ORDERED: KETOROLAC TROMETHAMINE 30 MG/ML (IVP) VIAL IVP PRN (19:15)
[2017-09-17] MEDS ORDERED: BENZOCAINE 6 MG/MENTHOL 10 MG LOZENGE BUCCAL PRN (19:15)
[2017-09-17] MEDS ORDERED: ACETAMINOPHEN/HYDROcodone 325 MG/5 MG TAB PO PRN ×2 (19:15)
[2017-09-17] MEDS ORDERED: POTASSIUM CHLOR 20 MEQ PREMIX 100 ML IV PRN (19:15)
[2017-09-17] MEDS ORDERED: POTASSIUM CHLOR 40 MEQ PREMIX 100 ML IV PRN (19:15)
[2017-09-17] MEDS ORDERED: ONDANSETRON HCL 4 MG/2 ML VIAL IV PUSH PRN (19:15)
[2017-09-17] MEDS ORDERED: NALOXONE HCL 0.4 MG/ML AMP IV PUSH PRN ×2 (19:15)
[2017-09-17] MEDS ORDERED: *HYDROmorphone PF 0.5 MG/0.5 ML PERIprocedure ONLY ONE (19:27)
[2017-09-17] MEDS: D5-NS + KCL 20 MEQ INJ 1,000 ML IV SCH (19:30)
[2017-09-17] MEDS ORDERED: *LABETALOL HCL 100 MG/20 ML VIAL PERIprocedural Use ONLY ONE (19:38)
[2017-09-17] MEDS: HYDROmorphone HCL PCA 6 MG/30 ML IV SCH (19:42)
[2017-09-17 20:18] VITALS: BP 138/65; PULSE 80; RESP 18; TEMP 97.6; O2SAT 100
[2017-09-17] MEDS: METOCLOPRAMIDE HCL 10 MG/2 ML VIAL IVS SCH (20:59)
[2017-09-17 21:00] VITALS: PULSE 86
[2017-09-17] MEDS ORDERED: VANCOMYCIN INJ 1,000 MG in SODIUM CHLOR 0.9% 250 ML INJ 250 ML IV SCH (21:00)
[2017-09-17] MEDS ORDERED: Vancomycin Consult Pharmacy 1 EA OTHER SCH (21:30)
[2017-09-17 22:00] VITALS: PULSE 90
[2017-09-17] MEDS: PCA - TOTAL MG DILAUDID DELIVERED PER SHIFT OTHER SCH (22:00)
[2017-09-17] MEDS ORDERED: PCA - TOTAL MG MORPHINE DELIVERED PER SHIFT SCH (22:00)
[2017-09-17 23:00] VITALS: BP 149/74; PULSE 93; RESP 18; TEMP 98; O2SAT 100
[2017-09-18] VITALS (15 sets, daily range): BP systolic 116–170; BP diastolic 52–80; PULSE 61–109; RESP 18–22; TEMP 97.3–98.1; O2SAT 97–100
[2017-09-18] MEDS: D5-NS + KCL 20 MEQ INJ 1,000 ML IV SCH ×3 (02:13→17:58)
[2017-09-18] MEDS: metroNIDAZOLE 500 MG INJ 100 ML IV SCH ×3 (02:14→17:40)
[2017-09-18 05:15] LABS: BASOPHIL % 0.1 % (0.0-2.0); HEMATOCRIT 33.4 % (35.0-46.0); HEMOGLOBIN 11.2 GM/DL (11.6-15.3); LYMPHOCYTE # 0.4 TH/MM3 (1.0-4.8); MEAN CELL VOLUME 92.2 FL (80.0-100.0); MEAN CORPUSCULAR HGB CONC 33.6 % (32.0-36.0); MEAN PLATELET VOLUME 9.2 FL (7.0-11.0); MONO % 3.8 % (0.0-8.0); MONOCYTE # 0.4 TH/MM3 (0-0.9); NEUT % 93.1 % (16.0-70.0); PLATELET COUNT 313 TH/MM3 (150-450); RED BLOOD COUNT 3.62 MIL/MM3 (4.00-5.30); RED CELL DISTRIBUTION WIDTH 15.2 % (11.6-17.2); WHITE BLOOD COUNT 11.8 TH/MM3 (4.0-11.0)
[2017-09-18 05:48] LABS: BICARBONATE 22.5 MEQ/L (21.0-32.0); CREATININE 0.87 MG/DL (0.50-1.00)
[2017-09-18] MEDS: PCA - TOTAL MG DILAUDID DELIVERED PER SHIFT OTHER SCH ×3 (06:00→22:00)
--- NOTE | 2017-09-18 07:20 | HHI.PR ---
Subjective Remarks C/R Surg POD #1 afebrile, VSS UO good MEETA min Objective - Vital Signs Date Time Temp Pulse Resp B/P (MAP) Pulse Ox O2 Delivery O2 Flow Rate FiO2 09/18/17 06:00 88 09/18/17 06:00 18 09/18/17 04:00 99 Nasal Cannula 2.00 09/18/17 03:00 97.9 116/52 (73) Result Diagram: 09/18/17 0500 09/18/17 0500 Objective Remarks PE alert Abd - soft, wound dry, min tympany A/P Assessment and Plan Imp: stable post-op OOB decr IVF tx to floor Justin Mi MD September 18, 2017 07:20
--- NOTE | 2017-09-18 08:10 | MP ---
cc: Justin Mi MD, Andrew H MD DATE OF OPERATION: 09/17/2017 PREOPERATIVE DIAGNOSIS: Infected abdominal mesh. PROCEDURE: 1. Exploratory laparotomy with removal of infected mesh. 2. Repair of abdominal wall hernia. POSTOPERATIVE DIAGNOSIS: Infected abdominal mesh. SURGEON: Dr. Mi. PADDING MACHINE OPERATOR: Dr. Hiren Saavedra. PROCEDURE: The patient was placed in the supine position. After adequate general anesthesia, her abdomen was prepped with Betadine solution and draped in the usual sterile fashion. With Dr. Saavedra's assistance, the granulating wound in the mid portion of her abdomen was explored digitally and several pockets of undermining subcutaneous tissue were discovered which were opened and exposed mesh material at the fascial level. Therefore, subcutaneous planes were developed both above and below these obvious open areas further identifying residual mesh sewn into the fascia. The wound had to be opened both cephalad and caudad and with further debridement, the abdomen was entered identifying omentum firmly attached to the underside of the mesh. These omental adhesions were released mobilizing the abdominal wall from the abdominal contents. Very few adhesions inside the abdomen were actually encountered. The small bowel was pretty unremarkable. The colon was somewhat gently dilated, but had no evidence of mechanical obstruction. A rather lengthy dissection was necessary to remove all residual mesh dividing its attachments to the fascial layer around the circumference of the incision. After completion, no residual mesh could be seen or palpated. Additional subcutaneous flaps were elevated on both sides of the incision for mobilization and the remaining fascia was trimmed back to healthy more substantial muscle and fascia. The midline was able to be closed primarily using a running #1 PDS suture to reapproximate the midline fascia without tension. The subcutaneous tissues were irrigated copiously. Some of the chronically inflamed skin was removed from the midline and the remaining subcutaneous tissue tacked down with several interrupted sub-Q Vicryl stitches. The sub-Q tissue was irrigated copiously and the skin closed loosely with a row of surgical janki. Dmitriy-Hughes drains were placed into the subcutaneous tissue on both sides brought out through stab wounds through stab wounds in the lower abdomen and secured to the skin with nylon sutures. Wound area washed with normal saline and dried, sterile dressing of Telfa and gauze applied. The patient tolerated the procedure quite well and was brought to the recovery room in stable condition. Sponge and needle counts were correct at the end of the procedure. MD NILES Solis/MICHEL , 07:51 AM , 08:09 AM
[2017-09-18] MEDS: HYDROCHLOROTHIAZIDE 12.5 MG CAP PO SCH (08:56)
[2017-09-18] MEDS: ATORVASTATIN 10 MG TAB PO SCH (08:56)
[2017-09-18] MEDS: HYDROXYCHLOROQUINE SULFATE 200 MG TAB PO SCH (08:57)
[2017-09-18] MEDS: METOCLOPRAMIDE HCL 10 MG/2 ML VIAL IVS SCH ×2 (08:57→20:42)
[2017-09-18] MEDS: POLYETHYLENE GLYCOL 17 GM PKG PO SCH (08:57)
[2017-09-18] MEDS: VALSARTAN 160 MG TAB PO SCH (08:57)
[2017-09-18] MEDS: PANTOPRAZOLE SOD 40 MG DELAYED RELEASE TAB PO SCH (08:57)
[2017-09-18] MEDS: ALVIMOPAN 12 MG CAPSULE PO SCH ×2 (08:57→20:40)
[2017-09-18] MEDS ORDERED: NON-FORMULARY DRUG (Valsartan-Hydrochlorothiazide 1 TAB) PO SCH (09:00)
[2017-09-18] MEDS ORDERED: NON-FORMULARY DRUG (Rosuvastatin (Crestor) 5 MG) PO SCH (09:00)
[2017-09-18] MEDS ORDERED: PANTOPRAZOLE SODIUM 40 MG VIAL IVP PRN (09:00)
[2017-09-18] MEDS: VANCOMYCIN INJ 1,000 MG in SODIUM CHLOR 0.9% 250 ML INJ 250 ML IV SCH (20:41)
[2017-09-19] VITALS: BP 169/81; PULSE 111; RESP 21; TEMP 97.8; O2SAT 96
[2017-09-19] MEDS: HYDROmorphone HCL PCA 6 MG/30 ML IV SCH (05:30)
[2017-09-19 06:00] VITALS: BP 157/89; PULSE 117; RESP 20; TEMP 97.8; O2SAT 94
[2017-09-19] MEDS: PCA - TOTAL MG DILAUDID DELIVERED PER SHIFT OTHER SCH ×3 (06:00→21:38)
[2017-09-19 07:20] LABS: AUTOMATED NEUTROPHIL # 8.8 TH/MM3 (1.8-7.7); BASOPHIL % 0.4 % (0.0-2.0); EOSINOPHIL # 0.7 TH/MM3 (0-0.4); EOSINOPHIL % 6.4 % (0.0-4.0); HEMATOCRIT 29.9 % (35.0-46.0); LYMPH % 10.8 % (9.0-44.0); LYMPHOCYTE # 1.3 TH/MM3 (1.0-4.8); MEAN CELL VOLUME 92.8 FL (80.0-100.0); MEAN CORPUSCULAR HGB CONC 33.4 % (32.0-36.0); MEAN PLATELET VOLUME 9.8 FL (7.0-11.0); MONO % 7.8 % (0.0-8.0); MONOCYTE # 0.9 TH/MM3 (0-0.9); NEUT % 74.6 % (16.0-70.0); PLATELET COUNT 323 TH/MM3 (150-450); RED BLOOD COUNT 3.22 MIL/MM3 (4.00-5.30); RED CELL DISTRIBUTION WIDTH 15.1 % (11.6-17.2); WHITE BLOOD COUNT 11.7 TH/MM3 (4.0-11.0)
[2017-09-19 07:38] LABS: BICARBONATE 20.9 MEQ/L (21.0-32.0); CALCIUM 8.5 MG/DL (8.5-10.1); CREATININE 0.6 MG/DL (0.50-1.00)
[2017-09-19 08:00] VITALS: BP 165/88; PULSE 119; RESP 18; TEMP 98.4; O2SAT 92
[2017-09-19] MEDS: D5-NS + KCL 20 MEQ INJ 1,000 ML IV SCH ×2 (08:40→22:45)
[2017-09-19] MEDS: POLYETHYLENE GLYCOL 17 GM PKG PO SCH (08:43)
[2017-09-19] MEDS: ALVIMOPAN 12 MG CAPSULE PO SCH ×2 (08:43→21:38)
[2017-09-19] MEDS: METOCLOPRAMIDE HCL 10 MG/2 ML VIAL IVS SCH ×2 (08:44→21:38)
[2017-09-19] MEDS: HYDROXYCHLOROQUINE SULFATE 200 MG TAB PO SCH (08:44)
[2017-09-19] MEDS: VALSARTAN 160 MG TAB PO SCH (08:44)
[2017-09-19] MEDS: HYDROCHLOROTHIAZIDE 12.5 MG CAP PO SCH (08:44)
[2017-09-19] MEDS: PANTOPRAZOLE SOD 40 MG DELAYED RELEASE TAB PO SCH (08:44)
[2017-09-19] MEDS: ATORVASTATIN 10 MG TAB PO SCH (08:45)
[2017-09-19 12:00] VITALS: BP 123/61; PULSE 109; RESP 17; TEMP 98.3; O2SAT 96
[2017-09-19 16:00] VITALS: BP 150/87; PULSE 115; RESP 18; TEMP 98.6; O2SAT 95
[2017-09-19] MEDS ORDERED: POLYETHYLENE GLYCOL 17 GM PKG PO PRN (17:30)
--- NOTE | 2017-09-19 17:31 | HHI.PR ---
Subjective Remarks C/R Surg POD #2 afebrile, VSS UO good MEETA min draining from wound Objective - Vital Signs Date Time Temp Pulse Resp B/P (MAP) Pulse Ox O2 Delivery O2 Flow Rate FiO2 09/19/17 16:00 98.6 115 18 150/87 (108) 95 09/18/17 11:00 Room Air 09/18/17 04:00 2.00 Result Diagram: 09/19/17 0509/19/17 05 Objective Remarks PE alert Abd - soft, wound concept artist this PM, drains little A/P Assessment and Plan Imp: OOB decr IVF abd binder check labs Justin Mi MD September 19, 2017 17:31
[2017-09-19 20:00] VITALS: BP 167/82; PULSE 111; RESP 18; TEMP 99.1; O2SAT 98
[2017-09-19] MEDS ORDERED: PHARMACY ORDERED LAB-VANCO TROUGH ONE (20:45)
[2017-09-19] MEDS: VANCOMYCIN INJ 1,000 MG in SODIUM CHLOR 0.9% 250 ML INJ 250 ML IV SCH (21:00)
[2017-09-20] VITALS (7 sets, daily range): BP systolic 114–175; BP diastolic 68–95; PULSE 110–135; RESP 17–24; TEMP 97.8–98.7; O2SAT 96–97
[2017-09-20] MEDS: RESP: IPRATROPIUM 0.5 MG/2.5 ML NEB NEB SCH ×7 (00:45→23:41)
[2017-09-20] MEDS: PCA - TOTAL MG DILAUDID DELIVERED PER SHIFT OTHER SCH (05:24)
[2017-09-20 07:49] LABS: AUTOMATED NEUTROPHIL # 9.9 TH/MM3 (1.8-7.7); BASOPHIL % 0.4 % (0.0-2.0); EOSINOPHIL # 0.8 TH/MM3 (0-0.4); HEMATOCRIT 32.3 % (35.0-46.0); HEMOGLOBIN 10.7 GM/DL (11.6-15.3); LYMPH % 13.5 % (9.0-44.0); LYMPHOCYTE # 1.8 TH/MM3 (1.0-4.8); MEAN CORPUSCULAR HEMOGLOBIN 30.3 PG (27.0-34.0); MEAN CORPUSCULAR HGB CONC 33.3 % (32.0-36.0); MEAN PLATELET VOLUME 9.7 FL (7.0-11.0); MONO % 5.9 % (0.0-8.0); MONOCYTE # 0.8 TH/MM3 (0-0.9); NEUT % 74.2 % (16.0-70.0); PLATELET COUNT 287 TH/MM3 (150-450); RED BLOOD COUNT 3.54 MIL/MM3 (4.00-5.30); WHITE BLOOD COUNT 13.4 TH/MM3 (4.0-11.0)
[2017-09-20 08:05] LABS: BICARBONATE 23.6 MEQ/L (21.0-32.0); CALCIUM 8.5 MG/DL (8.5-10.1); CREATININE 0.53 MG/DL (0.50-1.00)
[2017-09-20] MEDS: VANCOMYCIN INJ 1,000 MG in SODIUM CHLOR 0.9% 250 ML INJ 250 ML IV SCH ×2 (09:00→22:15)
[2017-09-20] MEDS: VALSARTAN 160 MG TAB PO SCH (09:28)
[2017-09-20] MEDS: METOCLOPRAMIDE HCL 10 MG/2 ML VIAL IVS SCH (09:28)
[2017-09-20] MEDS: ATORVASTATIN 10 MG TAB PO SCH (09:29)
[2017-09-20] MEDS: ALVIMOPAN 12 MG CAPSULE PO SCH ×2 (09:29→22:15)
[2017-09-20] MEDS: PANTOPRAZOLE SOD 40 MG DELAYED RELEASE TAB PO SCH (09:29)
[2017-09-20] MEDS: HYDROCHLOROTHIAZIDE 12.5 MG CAP PO SCH (09:29)
[2017-09-20] MEDS: HYDROXYCHLOROQUINE SULFATE 200 MG TAB PO SCH (09:29)
[2017-09-20] MEDS ORDERED: METOCLOPRAMIDE HCL 10 MG/2 ML VIAL IVS PRN (12:00)
--- NOTE | 2017-09-20 12:03 | HHI.FF ---
Face to Face Verification Diagnosis: (1) Infected hernioplasty mesh Home Health Nursing Order: Medical education Signs/symptoms of disease process Wound care and dressing changes I have seen patient Marilee Gibson on 09/20/17. My clinical findings support the need for the requested home health care services because: Ltd mobility - disease progression Deconditioned w/ increased weakness Need for psychosocial assistance Infection w/ risk of complications I certify that my clinical findings support that this patient is homebound because: Post-op weakness Unsteady gait/balance Justin Mi MD September 20, 2017 12:03
[2017-09-20] MEDS: D5-NS + KCL 20 MEQ INJ 1,000 ML IV SCH (14:48)
[2017-09-21] VITALS: BP 124/80; PULSE 130; RESP 19; TEMP 98; O2SAT 96
[2017-09-21] MEDS: RESP: IPRATROPIUM 0.5 MG/2.5 ML NEB NEB SCH ×2 (04:00→08:00)
[2017-09-21] MEDS: D5-NS + KCL 20 MEQ INJ 1,000 ML IV SCH ×2 (04:45→17:16)
[2017-09-21 08:00] VITALS: BP 132/84; PULSE 120; RESP 18; TEMP 98; O2SAT 96
[2017-09-21] MEDS: HYDROXYCHLOROQUINE SULFATE 200 MG TAB PO SCH (08:17)
[2017-09-21] MEDS: VANCOMYCIN INJ 1,000 MG in SODIUM CHLOR 0.9% 250 ML INJ 250 ML IV SCH ×2 (08:17→09:00)
[2017-09-21] MEDS: VALSARTAN 160 MG TAB PO SCH (08:18)
[2017-09-21] MEDS: HYDROCHLOROTHIAZIDE 12.5 MG CAP PO SCH (08:18)
[2017-09-21] MEDS: ATORVASTATIN 10 MG TAB PO SCH (08:19)
[2017-09-21] MEDS: PANTOPRAZOLE SOD 40 MG DELAYED RELEASE TAB PO SCH (08:19)
[2017-09-21] MEDS: ALVIMOPAN 12 MG CAPSULE PO SCH ×2 (08:27→20:04)
--- NOTE | 2017-09-21 08:42 | HHI.PR ---
Subjective Remarks C/R Surg POD #4 afebrile, VSS UO good MEETA min min wound drainage emesis x 1 Objective - Vital Signs Date Time Temp Pulse Resp B/P (MAP) Pulse Ox O2 Delivery O2 Flow Rate FiO2 09/21/17 00:00 98.0 130 19 124/80 (95) 96 09/20/17 15:15 Room Air 2.00 Result Diagram: 09/20/17 0706 09/20/17 0706 Objective Remarks PE alert Abd - soft, +flatus, min tympany wound dry A/P Assessment and Plan Imp: OOB decr IVF abd binder slow adv diet Justin Mi MD September 21, 2017 08:42
[2017-09-21] MEDS ORDERED: PHARMACY ORDERED LAB ONE (08:45)
[2017-09-21 12:00] VITALS: BP 120/73; PULSE 116; RESP 24; TEMP 97.9; O2SAT 100
[2017-09-21 16:00] VITALS: BP 143/78; PULSE 114; RESP 22; TEMP 97.9; O2SAT 100
[2017-09-21 20:00] VITALS: BP 128/68; PULSE 114; RESP 18; TEMP 97.8; O2SAT 99
[2017-09-21] MEDS: VANCOMYCIN 1,000 MG/NS 250 ML IV SCH ×2 (20:04)
[2017-09-21] MEDS: ACETAMINOPHEN 325 MG TAB PO PRN (21:55)
[2017-09-22] VITALS: BP 124/68; PULSE 108; RESP 18; TEMP 98; O2SAT 99
[2017-09-22] MEDS: D5-NS + KCL 20 MEQ INJ 1,000 ML IV SCH ×2 (07:37→20:57)
[2017-09-22 08:00] VITALS: BP 148/79; PULSE 104; RESP 17; TEMP 97.8; O2SAT 96
[2017-09-22] MEDS: HYDROXYCHLOROQUINE SULFATE 200 MG TAB PO SCH (09:00)
[2017-09-22] MEDS: VALSARTAN 160 MG TAB PO SCH (09:19)
[2017-09-22] MEDS: ATORVASTATIN 10 MG TAB PO SCH (09:19)
[2017-09-22] MEDS: PANTOPRAZOLE SOD 40 MG DELAYED RELEASE TAB PO SCH (09:19)
[2017-09-22] MEDS: ALVIMOPAN 12 MG CAPSULE PO SCH ×2 (09:19→21:08)
[2017-09-22] MEDS: HYDROCHLOROTHIAZIDE 12.5 MG CAP PO SCH (09:20)
[2017-09-22 12:00] VITALS: BP 130/67; PULSE 116; RESP 17; TEMP 98.3; O2SAT 96
[2017-09-22 16:00] VITALS: BP 106/58; PULSE 117; RESP 17; TEMP 99.4; O2SAT 98
[2017-09-22 20:00] VITALS: BP 105/57; PULSE 108; RESP 18; TEMP 97.6; O2SAT 98
[2017-09-22] MEDS: VANCOMYCIN 1,000 MG/NS 250 ML IV SCH ×2 (21:00)
[2017-09-22] MEDS: ACETAMINOPHEN 325 MG TAB PO PRN (21:08)
--- NOTE | 2017-09-22 22:20 | HHI.PR ---
Subjective Remarks C/R Surg POD #5 afebrile, VSS UO good MEETA min min wound drainage everton PO Objective - Vital Signs Date Time Temp Pulse Resp B/P (MAP) Pulse Ox O2 Delivery O2 Flow Rate FiO2 09/22/17 20:00 97.6 108 18 105/57 (73) 98 09/22/17 15:00 Room Air 09/20/17 15:15 2.00 Result Diagram: 09/20/17 0706 09/20/17 0706 Objective Remarks PE alert Abd - soft, +flatus, min tympany wound dry A/P Assessment and Plan Imp: OOB decr IVF abd binder slow adv diet dc plans Justin Mi MD September 22, 2017 22:19
[2017-09-23] VITALS: BP 142/70; PULSE 108; RESP 20; TEMP 97.6; O2SAT 96
[2017-09-23] MEDS: ACETAMINOPHEN 325 MG TAB PO PRN (03:22)
[2017-09-23 08:00] VITALS: BP 142/78; PULSE 95; RESP 18; TEMP 98.1; O2SAT 99
[2017-09-23] MEDS: ALVIMOPAN 12 MG CAPSULE PO SCH (08:30)
[2017-09-23] MEDS: VALSARTAN 160 MG TAB PO SCH (08:30)
[2017-09-23] MEDS: ATORVASTATIN 10 MG TAB PO SCH (08:31)
[2017-09-23] MEDS: HYDROCHLOROTHIAZIDE 12.5 MG CAP PO SCH (08:31)
[2017-09-23] MEDS: PANTOPRAZOLE SOD 40 MG DELAYED RELEASE TAB PO SCH (08:31)
[2017-09-23] MEDS: D5-NS + KCL 20 MEQ INJ 1,000 ML IV SCH (08:32)
[2017-09-23] MEDS: HYDROXYCHLOROQUINE SULFATE 200 MG TAB PO SCH (08:32)
[2017-09-23 08:47] LABS: CREATININE 1.95 MG/DL (0.50-1.00)
[2017-09-23] MEDS ORDERED: PHARMACY ORDERED LAB ONE (20:45)
== END 2017-09-23 11:25 | disposition home health service (06) | DRG 909 ==
LOC: HSDI 12:38 → HCPC 20:07 → N07A 09-18 14:23
PROVIDERS: ADMIT Colon & Rectal Surgery; ATTEND Colon & Rectal Surgery
PROC: 0JPT0YZ Removal of Other Device from Trunk Subcutaneous Tissue and Fascia, Open Approach (ICD-10-PCS; 2017-09-17)
PROC: 0WQF0ZZ Repair Abdominal Wall, Open Approach (ICD-10-PCS; principal; 2017-09-17 17:31)
DX: T85.79XA Infection and inflammatory reaction due to other internal prosthetic devices, implants and grafts, initial encounter (principal); M32.9 Systemic lupus erythematosus, unspecified; M06.9 Rheumatoid arthritis, unspecified; Y83.2 Surgical operation with anastomosis, bypass or graft as the cause of abnormal reaction of the patient, or of later complication, without mention of misadventure at the time of the procedure; K43.9 Ventral hernia without obstruction or gangrene; I10 Essential (primary) hypertension; E78.5 Hyperlipidemia, unspecified; I25.2 Old myocardial infarction; K21.9 Gastro-esophageal reflux disease without esophagitis; M81.0 Age-related osteoporosis without current pathological fracture; I73.00 Raynaud's syndrome without gangrene; Z96.641 Presence of right artificial hip joint; Z96.653 Presence of artificial knee joint, bilateral
CPT/HCPCS: 76937; 80048; 80053; 80202; 82565; 85025; 85610; 86850; 86900; 86901; 88304; 88305; 94150; 94640; 94664; J0131; J0690; J1100; J1170; J1885; J2370; J2405; J2710; J2765; J3010; J3370; J3480; J7050; J7120; J7644